=== PATIENT | male | born 1965 | race Caucasian/White ===

== ENCOUNTER 2020-02-15 09:46 | Outpatient (REF) | payer SELFPAY | END 2020-02-15 09:47 | disposition home or self-care (01) | LOC: HO.HMGCLDS 09:46 | PROVIDERS: PCP Internal Medicine; Visit Provider Internal Medicine | DX: Z20.828 Contact with and (suspected) exposure to other viral communicable diseases (principal) | CPT/HCPCS: C9803; U0003 ==

== ENCOUNTER 2020-11-11 15:53 | Outpatient (REF) | payer OTHER, SELFPAY ==
[2020-11-11 17:10] LABS: MANUAL DIFF FLAG NO
[2020-11-11 17:31] LABS: Basophils Percent Auto 0.6 % (0-2); Eosinophils Absolute Auto 0.3 X10*3/uL (0.0-0.4); Eosinophils Percent Auto 5.1 % (0-4); Hematocrit 41.8 % (42-52); Hemoglobin 14.1 g/dl (14.0-18.0); Imm Gran Abs Auto 0.02 X10*3/uL (0.00-0.03); Imm Gran Pct Auto 0.3 % (0.0-0.4); Lymphocytes Absolute Auto 2.1 X10*3/uL (1.2-4.9); Mean Corpuscular HGB Conc 33.7 g/dl (31.0-36.0); Mean Corpuscular Hemoglobin 29.3 pg (27.0-33.0); Mean Corpuscular Volume 86.7 fL (80-98); Mean Platelet Volume 9.5 fL (9.4-12.4); Monocytes Absolute Auto 0.5 X10*3/uL (0.1-1.2); Monocytes Percent Auto 7.4 % (2-11); Neutrophils Absolute Auto 3.5 X10*3/uL (2.0-8.3); Neutrophils Percent Auto 54.6 % (45-73); Platelet Count 166 X10*3/uL (160-400); Red Blood Count 4.82 X10*6/uL (4.60-5.80); Red Cell Distribution Width 13.2 % (11.0-16.0); White Blood Count 6.5 X10*3/uL (4.8-10.8)
[2020-11-11 17:48] LABS: Alanine Aminotransferase 27 U/L (0-40); Albumin Level 4.4 g/dL (3.5-5.0); Alkaline Phosphatase 62 U/L (39-117); Anion Gap 13 (12-20); Aspartate Amino Transferase 26 U/L (5-37); Bilirubin Total 0.4 mg/dL (0.0-1.0); Blood Urea Nitrogen 15 mg/dL (9-16); Calcium 9.3 mg/dL (8.4-10.2); Carbon Dioxide 25 mmol/L (22-29); Chloride 106 mmol/L (96-108); Cholesterol 163 mg/dL; Estimated Glomerular Filt Rate > 60; Glucose Fasting 119 mg/dL (60-99); HDL Cholesterol 37 mg/dL; Iron 43 mcg/dL (45-160); LDL Cholesterol Calculated 103 mg/dl; Percent Iron Saturation 11 % (15-50); Sodium 140 mmol/L (135-145); Total Iron Binding Capacity 388 mcg/dL (228-428); Total Protein 7.1 g/dL (6.5-8.0); Triglycerides 119 mg/dL; Unsaturated Iron Binding 345 ug/dL
[2020-11-11 18:10] LABS: Ferritin 18 ng/mL (20-250); Thyroid Stimulating Hormone 0.95 uIU/mL (0.32-4.0); Vitamin D 25-OH Total 39.9 ng/mL (>30)
[2020-11-14 13:12] LABS: Free Prostate Spec Ag 1.4 ng/mL; Percent Free Prostate Spec Ag NOT CALCULATED % (calc) (>25); Prostate Specific Ag Total 12.1 ng/mL (< OR = 4.0)
== END 2020-11-11 15:54 | disposition home or self-care (01) ==
LOC: HO.LAB 15:53
PROVIDERS: PCP Internal Medicine; Visit Provider Internal Medicine
DX: Z00.00 Encounter for general adult medical examination without abnormal findings (principal); Z12.5 Encounter for screening for malignant neoplasm of prostate; D50.9 Iron deficiency anemia, unspecified; I10 Essential (primary) hypertension
CPT/HCPCS: 36415; 80053; 80061; 82306; 82728; 83540; 84154; 84443; 85025

== ENCOUNTER → 2021-01-10 13:54 | Outpatient (BNVA) | payer OTHER, SELFPAY | PROVIDERS: PCP Internal Medicine; Visit Provider Surgery ==

== ENCOUNTER 2021-01-30 09:42 | Day surgery (SDC) | payer OTHER, SELFPAY ==
[2021-01-23 13:21] VITALS: BMI 28.3
[2021-01-30] VITALS (9 sets, daily range): BP systolic 108–134; BP diastolic 60–85; PULSE 56–64; RESP 16; TEMP 36.3–36.7; O2SAT 95–97
--- NOTE | 2021-01-30 10:36 | HO.ANESPROP2 ---
[facility] Active Problems Active Problems: All Active Problems (Updated 01/23/21 @ 13:21 by Alexia Lambert, RN) Seasonal allergies (Acute) Umbilical hernia (Acute) Past Medical History Medical History (Updated 01/23/21 @ 13:21 by Alexia Lambert, RN) Asthma Back pain COVID-19 vaccine series completed Iron deficiency anemia Sleep difficulties Family History Family History Father Cancer of spine Mother Emphysema, unspecified Family history of problems with anesthesia: No Surgical History Surgical History (Updated 01/23/21 @ 13:21 by Alexia Lambert RN) H/O prostate biopsy Hx of colonoscopy [place] teeth removed History of Problems with Anesthesia: No Social History Social History Are you a primary animal daycare provider to a significant other at home: No Do you presently have visiting nurse or other home services: No Patient Tobacco Use Status: Never used Tobacco Use of substances other than those prescribed or required for medical reasons: No Have you been hit, kicked, punched, or otherwise hurt by someone within the past year? If so, by whom?: No Are you DNR?: No Advance Directives: No Advance Directives Information Provided: No Advance Directives on File: No Recently lost weight without trying: No Eating poorly because of decreased appetite: No Nutrition Risks: No Nutritional Risk Poor oral hygiene: No Meds Allergies Allergy/AdvReac Type Severity Reaction Status Date / Time Benadryl Allergy Unknown hives Uncoded 01/23/21 13:18 Active Medications: Current Medications Sodium Chloride (Ns) 1,000 mls @ 50 mls/hr IVCONT .Q20H MARLYN Lactated Ringer's (Lr) 1,000 mls @ 100 mls/hr IVCONT .Q10H MARLYN Cefazolin Sodium/Dextrose (Ancef) 2 gm in 50 mls @ 100 mls/hr IV PREOP ONE Stop: 01/30/21 10:38 Home Medications Medication Instructions Recorded Confirmed Last Taken Type ferrous sulfate 325 mg (65 mg 325 mg PO DAILY 01/10/21 01/23/21 Unknown History iron) tablet (FeroSul) albuterol sulfate 90 mcg/actuation 1 puff INHALATION Q4-6H PRN 01/23/21 01/23/21 Unknown History aerosol inhaler melatonin 5 mg tablet 5 mg PO BEDTIME PRN 01/23/21 01/23/21 Unknown History Exam Exam Date and Time: January 30, 2021 1036 Height,Weight and Vital Signs: Height 5 ft 11 in Weight 92.079 kg Airway Mallampati Class: I TM Dist: >3cm Neck ROM: Full Loose/Missing/Broken Teeth: Yes and Lower Heart: ok Lungs: ok Assessment and Plan Final Anesthetic Review Family History of Problems with Anesthesia: No History of Problems with Anesthesia: No NPO: Yes ASA Class: II Final Preanesthetic Review: No Changes in Pt Med Stat, Meds/Allgs Chart Reviewed, Consent Obtained/Reviewed and Anes Risks/Benef Reviewed Patient Risk: Low Procedure Risk: Low Anesthetic Plan Anesthetic Plan: GA and Agree w/ Assess. and Plan Disposition: Standard PACU
[2021-01-30] MEDS: Lactated Ringers 1,000 ML 100 ML IVCONT (10:55)
--- NOTE | 2021-01-30 11:47 | W.PM.OPN ---
Operative Note Operative Note Date of Service: 01/30/21 Narrative: Preoperative diagnosis: Umbilical hernia Postoperative diagnosis: Same Procedure: Repair of umbilical hernia with mesh Surgeon: Jackson Tao MD Critical Power Install Technician: Kristen Potts PA-C Anesthesia: General LMA Indications for procedure: 55-year-old male patient presenting with a painful umbilical hernia which is been present for approximately 5 years but is now becoming more symptomatic. Patient is requesting repair of this symptomatic umbilical hernia. Operative findings: Umbilical hernia with incarcerated omental fat Specimen: None Estimated blood loss: 5 mL Complications: None Procedure details: Patient was brought to the OR placed in a supine position. After administering general anesthesia patient's abdomen was prepped with ChloraPrep and draped in a sterile fashion. A surgical time-out was called the consent confirmed. Patient received preoperative antibiotics and Venodyne boots were placed. Local anesthesia consisting of 0.5% Sensorcaine was infiltrated above the umbilicus. Incision was made in a transverse fashion over the umbilicus. This was carried down through subcutaneous tissue up to the hernia sac. The hernia sac was then dissected circumferentially using electrocautery down to the fascial edge. Fascial edge was clearly defined and the hernia sac reduced. A preperitoneal space was then created with blunt sharp dissection. A 6.4 cm Ventralex mesh was then obtained. This was placed in the preperitoneal space and secured in 4 quadrants using a 1 Tycron suture. Fascia was then closed over this mesh incorporating the mesh in the closure. This again was done with 1 Tycron suture. Wounds were then irrigated with saline solution and suctioned dry. Additional local anesthesia was infiltrated into the muscular and subcutaneous tissue. Umbilical skin was then secured to the fascial edge using a 3-0 Polysorb suture. Dermis was reapproximated using interrupted 3-0 Polysorb sutures. Skin was then closed using a running subcuticular 4-0 Polysorb suture. Steri-Strips 2 x 2 gauze and Tegaderm were then applied. The patient tolerated the procedure well. Sponge, instrument, and needle counts reported as correct. The patient was transferred to PACU in stable condition.
[2021-01-30] MEDS: oxyCODONE HCl Immed Release 5 MG TABLET 10 MG PO (12:20)
[2021-01-30] MEDS: Acetaminophen 325 MG TABLET 650 MG PO (12:20)
== END 2021-01-30 13:30 | disposition home or self-care (01) ==
PROVIDERS: PCP Internal Medicine; Visit Provider Surgery
PROC: (CPT 49585; principal; 2021-01-30 11:20)
DX: K42.9 Umbilical hernia without obstruction or gangrene (principal); J45.909 Unspecified asthma, uncomplicated; D50.9 Iron deficiency anemia, unspecified; Z79.899 Other long term (current) drug therapy; Z88.8 Allergy status to other drugs, medicaments and biological substances
CPT/HCPCS: 49585; C1781; J0690; J1100; J1885; J2250; J2405; J3010

== ENCOUNTER → 2021-02-07 13:11 | Outpatient (BNVA) | payer OTHER, SELFPAY | PROVIDERS: PCP Internal Medicine; Visit Provider Surgery ==

== ENCOUNTER → 2021-08-08 13:44 | Outpatient (BNVA) | payer SELFPAY | PROVIDERS: PCP Internal Medicine; Visit Provider Physician Assistant Medical | DX: Z02.79 Encounter for issue of other medical certificate (principal) ==

== ENCOUNTER 2022-01-10 12:16 | Outpatient (REF) | payer OTHER, SELFPAY ==
[2022-01-10 14:06] LABS: D Dimer High Sensitivity 672 NG/ML
== END 2022-01-10 12:17 | disposition home or self-care (01) ==
LOC: HO.WFDLDS 12:16
PROVIDERS: Visit Provider Hospitalist
DX: S70.12XA Contusion of left thigh, initial encounter (principal); W19.XXXA Unspecified fall, initial encounter
CPT/HCPCS: 36415; 85379

== ENCOUNTER 2022-01-10 15:07 | Outpatient (REF) | payer OTHER, SELFPAY ==
--- NOTE | ~2022-01-10 | US_ITS ---
EXAMINATION: US VENOUS ULTRASOUND WITH DOPPLER LOWER EXTREMITY, LEFT CLINICAL INFORMATION: Left thigh contusion. COMPARISON: None TECHNIQUE: Ultrasound of the deep veins is performed from the hip to the calf with compression sonography and color and pulse Doppler assessment. Spectral analysis with color-flow imaging is performed. FINDINGS: There is normal venous compression and respiratory variation and augmented flow. The visualized common femoral vein, superficial femoral vein, profunda femoral vein, popliteal vein, and the trifurcation region shows no evidence of deep venous thrombosis. No left popliteal cyst. In the region of pain in the left lateral thigh is a deep small hypoechoic focus with smooth margins and horizontal orientation at the muscular level measuring approximately 1.7 x 0.5 x 1.2 cm. Color Doppler showed no abnormal vascular flow. The subcutaneous soft tissues are unremarkable. US/US venous duplex LE LT IMPRESSION: 1. No evidence for deep venous thrombosis in the visualized veins of the left lower extremity. 2. Small hypoechoic focus of the deep muscular level in the region of contusion in the lateral left thigh is nonspecific, but demonstrates benign features. This could represent a small hematoma. No other significant abnormality. * If these findings persist or enlarge, short-term repeat targeted soft tissue ultrasound can be performed as clinically indicated to assess for change.
== END 2022-01-10 15:08 | disposition home or self-care (01) ==
LOC: HO.US 15:07
PROVIDERS: PCP Internal Medicine; Visit Provider Hospitalist
DX: I82.409 Acute embolism and thrombosis of unspecified deep veins of unspecified lower extremity (principal); S70.12XA Contusion of left thigh, initial encounter; W19.XXXA Unspecified fall, initial encounter
CPT/HCPCS: 93971

== ENCOUNTER 2022-10-23 14:39 | Outpatient (AMB) | payer OTHER, SELFPAY ==
--- NOTE | 2022-10-23 15:00 | AM.OFFWIN_ITS ---
Intake Vital Signs 10/23/22 15:02 Height 5 ft 11 in Weight 213 lb 4 oz BMI 29.7 BP 114/78 Blood Pressure Location Rt brachial Position Sitting Respiration 14 Pulse 95 Pulse Source Pulse Oximeter Temp 99.1 F Temp Source Temporal Artery Scan Pulse Oximetry (%) 98 Oxygen Delivery Method Room Air Intake Visit Reasons: chills,unable to urinate Intake Note: Patient presents with chills today. Patient completed U/A x4 days ago at [facility] and his urine was an dulce color. Patient reports not being able to urinate. Patient reports when is can finally urinate it desai. Patient reports lower abdomen pain when the urgency presents. Patient Tobacco Use Status: Never used Tobacco [employer] Consultant Required: No Accompanied by: Self / Same As Patient Allergies Benadryl Allergy (Unknown, Uncoded 01/16/22 10:59) hives Medication List - Last Reconciled 10/23/22 by Toy Zayas MD albuterol sulfate 90 mcg/actuation 1 puff inhalation Q4-6H PRN doxycycline hyclate 100 mg PO BID 10 days ferrous sulfate (FeroSul) 325 mg PO DAILY melatonin 5 mg PO BEDTIME PRN Do you need a note to return to daycare/school/sports/work: No HPI chills,unable to urinate HPI Details 57 y/o male presents with complaints of chills and being unable to urinate. He reports that when he does urinate he has felt significant dysuria. He reports he feels he is able to barely urinate today. He reports difficulty emptying but does note that some urine does come out and has been able to urinate multiple times today. [facility] Medical History Asthma Back pain COVID-19 vaccine series completed Iron deficiency anemia Sleep difficulties Surgical History H/O prostate biopsy H/O umbilical hernia repair (01/30/21) Hx of colonoscopy [place] teeth removed Family History Father Cancer of spine Mother Emphysema, unspecified Social History Are you a primary auto care center manager to a significant other at home: No Do you presently have visiting nurse or other home services: No Patient Tobacco Use Status: Never used Tobacco Physical Exam Vital Signs: Last Vital Signs Temp 99.1 F 10/23/22 15:02 Pulse 95 10/23/22 15:02 Resp 14 10/23/22 15:02 BP 114/78 10/23/22 15:02 Pulse Ox 98 10/23/22 15:02 Oxygen Delivery Method Room Air 10/23/22 15:02 BMI result Body Mass Index 29.7 Office Meds ceftriaxone Performing Provider: Toy Zayas MD Administered by: Alexia Escamilla RN on 10/23/22 16:18 Dose Route Admin Location Lot Number Expiration Date NDC Synthetic Filament Spinner 500 mg IM right glut [id number] 08/16/23 5425-9894-36 [facility] Comments: 500mg ceftriaxone reconstituted with 1 ml of lidocaine hcl 1%. Results AMB Urinalysis Dipstick UR Leukocytes Large Last Edit by Gladys Cervantes on 10/23/22 15:31 UR Nitrite Negative Last Edit by Gladys Cervantes on 10/23/22 15:31 UR Urobilinogen Normal Last Edit by Gladys Cervantes on 10/23/22 15:31 UR Protein Trace Last Edit by Gladys Cervantes on 10/23/22 15:31 UR Ph 5.5 Last Edit by Gladys Cervantes on 10/23/22 15:31 UR Blood Trace Last Edit by Gladys Cervantes on 10/23/22 15:31 UR Specific [place] 1.025 Last Edit by Gladys Cervantes on 10/23/22 15 :31 UR Ketone Negative Last Edit by Gladys Cervantes on 10/23/22 15:31 UR Bilirubin Negative Last Edit by Gladys Cervantes on 10/23/22 15:31 UR Glucose Negative Last Edit by Gladys Cervantes on 10/23/22 15:31 Results Reviewed Results Reviewed: Laboratory Last Values Urine pH (Clinic) 5.5 10/23/22 15:29 Specific [place] (Clinic) 1.025 10/23/22 15:29 Ur Protein (Clinic) Trace 10/23/22 15:29 Ur Ketones (Clinic) Negative 10/23/22 15:29 Urine Blood (Clinic) Trace 10/23/22 15:29 Urine Nitrite Negative 10/23/22 15:29 Urine Bilirubin (Clinic) Negative 10/23/22 15:29 Urobilinogen (Clinic) Normal 10/23/22 15:29 Leukocyte Esterase (Clinic) Large 10/23/22 15:29 Urine Glucose (Clinic) Negative 10/23/22 15:29 Assessment & Plan Assessment & Plan (1) Dysuria: Code(s): R30.0 - Dysuria Plan: Dysuria with some difficulty urinating and patient acknowledges upon questioning that he is sexually active and cannot rule out STD/STI. Possible GC/chlamydia infection with prostatitis Possible UTI Patient will receive Rocephin IM in office today and I will send him a script for doxycycline. Doxycycline has fair coverage for UTI but I am sending urine for culture and sensitivity as he may require a change in antibiotics. Advised he hydrate well and monitor carefully. We discussed that if he is having difficulty urinating he could develop a sepsis condition and would need to go to the emergency department. Patient was advised that if not improving or worsening at any time, he should go to the ED. Patient expresses understanding. Will give him the next 2 days off from work. (2) Difficulty urinating: Code(s): R39.198 - Other difficulties with micturition Plan: As above Orders: Orders Urine Culture Today R30.0 - Dysuria UA and rflx microscopic Today R30.0 - Dysuria, Z00.00 - Encounter for general adult medical examination without abnormal findings AMB Ceftriaxone Injection Today R30.0 - Dysuria, R39.198 - Other difficulties with micturition Urine Dipstick Today R30.0 - Dysuria Medications: New doxycycline hyclate 100 mg PO BID 20 caps 0RF 10 days Coding Level of Care Code Est Pt Level 3 (83911) Diagnoses Dysuria R30.0 Difficulty urinating R39.198
[2022-10-23 15:02] VITALS: BP 114/78; PULSE 95; RESP 14; TEMP 37.3; O2SAT 98; BMI 29.7
== END 2022-10-23 15:58 | disposition home or self-care (01) ==
PROVIDERS: PCP Internal Medicine; Visit Provider Family Medicine
DX: R30.0 Dysuria (principal); R39.198 Other difficulties with micturition
CPT/HCPCS: 96372; 99213; J0696

== ENCOUNTER 2022-10-23 15:20 | Outpatient (REF) | payer OTHER, SELFPAY ==
[2022-10-24 12:24] LABS: Appearance Urine Clear; Color Urine Yellow; Glucose Urine UA Negative (Negative); Leukocyte Esterase Urine Small (1+) (Negative); Nitrite Urine Negative (Negative); PH 5.5 (5.0-9.0); UMIC TRIGGER UA YES; Urine Blood Negative (Negative); Urine Ketones Negative (Negative); Urine Protein Negative (Neg-Trace)
[2022-10-24 12:26] LABS: Bacteria Urine None Seen (None Seen); Hyaline Casts Urine 0-2 /LPF (0-2); RBC Urine 0-2 /HPF (0-2); Squamous Epithelial Cell Urine 0-2 /HPF (0-2); WBC Urine >50 /HPF (0-5)
== END 2022-10-23 15:21 | disposition home or self-care (01) ==
LOC: HO.LAB 15:20
PROVIDERS: Visit Provider Family Medicine
DX: R30.0 Dysuria (principal)
CPT/HCPCS: 81001; 87086

== ENCOUNTER 2023-04-16 09:52 | Emergency (ER) | payer OTHER, SELFPAY ==
[2023-04-16 09:56] VITALS: BP 156/88; PULSE 64; RESP 18; TEMP 36.6; O2SAT 98; BMI 29.8
[2023-04-16 11:26] LABS: Appearance Urine Clear; Color Urine Yellow; Glucose Urine UA Negative (Negative); Leukocyte Esterase Urine Negative (Negative); Nitrite Urine Negative (Negative); Specific Gravity - Urine 1.025 (1.005-1.025); UMIC TRIGGER UACC YES; Urine Blood Trace (Negative); Urine Ketones Negative (Negative); Urine Protein Negative (Neg-Trace)
[2023-04-16 11:33] LABS: Bacteria Urine None Seen (None Seen); Hyaline Casts Urine 0-2 /LPF (0-2); RBC Urine 0-2 /HPF (0-2); Squamous Epithelial Cell Urine 0-2 /HPF (0-2); WBC Urine 0-5 /HPF (0-5)
--- NOTE | 2023-04-16 12:27 | ED_ITS ---
HPI - Male Genitourinary General Chief complaint: Urogenital-Male Stated complaint: trouble urinating Time Seen by Provider: 04/16/23 11:12 Source: patient and RN notes reviewed Mode of arrival: ambulatory Limitations: no limitations History of Present Illness HPI Narrative: This is a 57 year old male, with no known medical problems, presenting to the emergency department with complaints of intermittent urinary symptoms for several months. ?Patient states that over the last several months he has had intermittent urinary urgency, frequency and dysuria. He was previously seen in December where he was given prophylactic treatment for STI's. He states that he has had nocturia which he states that he has been urinating three to four times a night. He also reports that he oftentimes has to strain with urination. He states that when he wakes up in the morning he has burning with urination. He denies any penile drainage or discharge. He is not currently sexually active, last had sexual intercourse five to six months ago. He denies any fevers, chills, chest pain, shortness of breath, abdominal pain, nausea, vomiting or diarrhea. He feels as though he is able to fully empty his bladder at this time. No testicular pain or swelling. He has a PCP. No rashes no other complaints are concerns at this time. MD Complaint: dysuria Quality: burning Relieving factors: none Exacerbating factors: urination Associated symptoms: Reports denies other symptoms Related Data Sexually active: No Home Medications Medication Instructions Recorded Confirmed ferrous sulfate 325 mg (65 mg 325 mg PO DAILY 01/10/21 10/23/22 iron) tablet (FeroSul) albuterol sulfate 90 mcg/actuation 1 puff inhalation Q4-6H PRN 01/23/21 10/23/22 aerosol inhaler Wheezing melatonin 5 mg tablet 5 mg PO BEDTIME PRN Sleep 01/23/21 10/23/22 Previous Rx's Medication Instructions Recorded doxycycline hyclate 100 mg capsule 100 mg PO BID 10 days #20 caps 10/23/22 Allergies Allergy/AdvReac Type Severity Reaction Status Date / Time Benadryl Allergy Unknown hives Uncoded 04/16/23 09:56 Review of Systems Review of Systems: Yes all other systems are reviewed and are negative PMFSH Past Medical History Medical History Asthma Back pain COVID-19 vaccine series completed Iron deficiency anemia Sleep difficulties Surgical History H/O prostate biopsy H/O umbilical hernia repair (01/30/21) Hx of colonoscopy [place] teeth removed Family History Family History Father Cancer of spine Mother Emphysema, unspecified Social History Social History Are you a primary primary care physician to a significant other at home: No Do you presently have visiting nurse or other home services: No Patient Tobacco Use Status: Never used Tobacco Smoked in Last 30 Days: No Use of substances other than those prescribed or required for medical reasons: No Advance Directives: No Physical Exam Vital Signs: Vital Signs: Last Vital Signs Temp 98 F 04/16/23 12:44 Pulse 70 04/16/23 12:44 Resp 16 04/16/23 12:44 BP 140/70 H 04/16/23 12:44 Pulse Ox 98 04/16/23 12:44 O2 Del Method Room Air 04/16/23 12:44 BMI result Body Mass Index 29.8 Const: Other: General: Awake, alert, and oriented X3. No acute distress. HEENT: Normal inspection CVS: Normal heart rate and rhythm. Pulses normal. Respiratory: No respiratory distress, Lungs CTAB Abdomen: Soft, Nontender, nondistended Skin: Warm, dry, no rashes noted to exposed skin. Normal skin color. Normal skin turgor. Extremities: Normal to inspection Neuro: Oriented X 3. No motor deficit. No sensory deficit. Medical Decision Making Medical Decision Making MDM Narrative: This 57 year old male presenting to the emergency department with complaints of dysuria x 3 weeks. Patient states that the [place] is not constant and typically occurs in the morning. 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 He denies any hematuria, but does report urinary frequency at night as well as dribbling. Urinalysis was collected, does not appear to be infected. He's requesting gonorrhea and chlamydia testing however has not been sexually active in the last five to six months. Declining treatment for STI's at this time. I discussed with patient the findings from urine analysis and I do not believe that this is a urinary tract infection and stand rather possible prostate problem. I discussed with patient to follow up with PCP or urology which I gave him a referral to today. Patient given return precautions. His vital signs are stable, abdomen soft non tender, no back pain, no further ER evaluation, labs, or diagnostic imaging at this time. Patient stable for discharge. Differential Diagnosis Differential Diagnoses: The differential diagnosis associated with the presentation includes UTI, BPH, urinary frequency, retention, STI Lab Data MDM Lab Attestation statement: I reviewed the patient's lab results. Neg for UTI. no chlamydia/gonorrhea Labs: Lab Results 04/16/23 04/16/23 Range/Units 11:11 11:16 Urine Color Yellow Urine Appearance Clear Urine pH 6.0 (5.0-9.0) Ur Specific [place] 1.025 (1.005-1.025) Urine Protein Negative (Neg-Trace) mg/dL Urine Glucose (UA) Negative (Negative) mg/dL Urine Ketones Negative (Negative) mg/dL Urine Blood Trace (Negative) Urine Nitrite Negative (Negative) Ur Leukocyte Esterase Negative (Negative) Urine RBC 0-2 (0-2) /HPF Urine WBC 0-5 (0-5) /HPF Ur Squamous Epith Cells 0-2 (0-2) /HPF Urine Bacteria None Seen (None Seen) Hyaline Casts 0-2 (0-2) /LPF Chlam trachomat DNA PCR NOT DETECTED (Not Detect.) C.trachomatis RNA (TMA) Cancelled Chlamydia/GC Comment Cancelled N.gonorrhoeae DNA (PCR) NOT DETECTED (Not Detect.) N.gonorrhoeae RNA (TMA) Cancelled Discharge Plan Discharge Clinical Impression: Dysuria, Urinary frequency Patient Disposition: Home, Self-Care Instructions: Dysuria (ED), Urinary Urgency and Frequency (DC) Additional Instructions: You were seen in the emergency department due to painful urination, and urinary frequency Your urine does not appear to be infected. We sent your urine for chlamydia and gonorrhea testing. We will call you if these are positive. If you wish to have further STI testing, you may report to [facility], they can perform a full STI panel on you. I am also suggesting to drink plenty of fluids get plenty of rest. Your symptoms may be attributed to prostate problems, I am recommending he follow-up with your primary care physician or you can follow-up with Urology. Call to make an appointment today. If any new or worsening symptoms occur including but not limited to unable to urinate, fever, chills, worsening pain, or worsening symptoms, please return for re-evaluation. Prescriptions: No Action albuterol sulfate 90 mcg/actuation HFA aerosol inhaler 1 puff inhalation Q4-6H PRN (Reason: Wheezing) melatonin 5 mg Tablet 5 mg PO BEDTIME PRN (Reason: Sleep) doxycycline hyclate 100 mg capsule 100 mg PO BID 10 Days Qty: 20 0RF ferrous sulfate [FeroSul] 325 mg (65 mg iron) tablet 325 mg PO DAILY Referrals: [facility] [place] Urology Services [Provider Group] Interventions: ED Discharge Assessment Last Done: 04/16/23 12:50 Discharge Date/Time: 04/16/23 12:49
[2023-04-16 12:44] VITALS: BP 140/70; PULSE 70; RESP 16; TEMP 36.6; O2SAT 98
[2023-04-16 16:58] LABS: CT PCR NOT DETECTED (Not Detect.); NG PCR NOT DETECTED (Not Detect.)
== END 2023-04-16 12:49 | disposition home or self-care (01) ==
PROVIDERS: Physician Assistant Medical; Emergency Provider Emergency Medicine Emergency Medical Services
DX: R39.15 Urgency of urination (principal); R30.0 Dysuria; R35.0 Frequency of micturition; Z79.899 Other long term (current) drug therapy
CPT/HCPCS: 0353U; 81001; 99283; 99284

== ENCOUNTER 2023-05-24 15:34 | Outpatient (AMB) | payer OTHER, SELFPAY ==
--- NOTE | 2023-05-24 16:09 | A.OFFVIS_ITS ---
Intake Intake Visit Reasons: frequency, urgency ED follow up Intake Note: New Patient presents for initial visit for [facility] [place] ER follow up for Dysuria, frequency, and urgency ER Visit: 04/16/23 Urology Medications: none Blood Thinner: none PVR:67ml's Jockey Agent Required: No Accompanied by: Self / Same As Patient Allergies Benadryl Allergy (Unknown, Uncoded 05/26/23 23:53) hives Medication List - Last Reconciled 05/26/23 by SEAN Castro albuterol sulfate 90 mcg/actuation 1 puff inhalation Q4-6H PRN melatonin 5 mg PO BEDTIME PRN tamsulosin 0.4 mg PO BEDTIME 30 days HPI HPI Comments History of Present Illness Details Hector is a very pleasant 57-year-old male patient. He has a past medical history of iron deficiency anemia, asthma, and back pain. He presents to the office today as a new patient for ongoing lower urinary tract symptoms. He reports noting worsening urinary frequency and nocturia. 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 In discussion with the patient today reports having seeked emergency room care approximately 6 weeks ago as he had been experiencing intermittent urinary symptoms for several months. He reports symptoms continue to be present therefore recommendations were made for urology referral. He reports noting intermittent issues with urinary urgency, urinary frequency, and dysuria. He otherwise denies incontinence, hematuria, foul smelling urine, changes to urinary stream, flank pain, fever, and or chills. Discussed at length potential causes for lower urinary tract symptoms patient is experiencing. Discussed obtaining retroperitoneal ultrasound as well as PSA for further assessment evaluation. TAMRA offered however deferred. He otherwise offers no other issues or concerns at this time. [facility] Medical History COVID-19 vaccine series completed Back pain Iron deficiency anemia Sleep difficulties Asthma Surgical History H/O umbilical hernia repair (01/30/21) Hx of colonoscopy [place] teeth removed H/O prostate biopsy Family History Father Cancer of spine Mother Emphysema, unspecified Social History Are you a primary caregivers homecare to a significant other at home: No Do you presently have visiting nurse or other home services: No Patient Tobacco Use Status: Never used Tobacco Review of Systems Const Reports no additional complaints Eyes Reports no additional complaints ENT Reports no additional complaints Card Reports no additional complaints Resp Reports as per HPI GI Reports no additional complaints Reports as per HPI Musc Reports as per HPI Neuro Reports no additional complaints Psych Reports no additional complaints Endo Reports no additional complaints Terry/Lymph Reports as per HPI Aller/Immun Reports no additional complaints Physical Exam Const General: cooperative, healthy appearing, comfortable, no acute distress, well developed, alert and awake Orientation/consciousness: patient oriented x3 Limitations: no limitations HEENT Head: Yes normal to inspection, Yes normocephalic and Yes atraumatic Ears: hearing grossly normal bilaterally Eyes General: appearance normal, both eyes and all related structures Neck Neck: Yes normal visual inspection and Yes trachea midline Chest Chest palpation & inspection: normal inspection of the chest Resp Effort & Inspection: normal respiratory effort and able to speak in complete sentences Cardio Rate: regular rate GI Inspection: Yes normal to inspection General: Yes no CVA tenderness Back/Spine/Pelvis Back: no CVA tenderness Skin General skin exam: no rashes or lesions noted Neuro General: patient oriented x3 Extrem General: Yes normal to inspection Psych Appearance: grossly normal and well kempt Mental Status: mental status grossly normal Speech and movement: Normal speech and movement present and Clear speech present Affect: normal affect Attitude: cooperative Thought process: Normal thought process present Thought content: Normal thought content present Insight: Fair insight present (Psych) Judgement: Fair judgement present (Psych) Office Procedures Post Void Residual Post Residual Void Post Void Residual (PVR): 67 [id number] Void Residual by ultrasound Results AMB Urinalysis, Automated UA Leukoctes 0 Arben/uL Last Edit by [employer] on 05/24/23 16:26 UA Nitrite Negative Last Edit by [employer] on 05/24/23 16:26 UA Urobilinogen 0.2 mg/dL Last Edit by [employer] on 05/24/23 16:26 UA Protein 15 mg/dL Last Edit by [employer] on 05/24/23 16:26 UA pH 6.0 Last Edit by [employer] on 05/24/23 16:26 UA Blood 0 Gonzalez/uL Last Edit by Latesha Burtonadán on 05/24/23 16:26 UA Specific [place] 1.025 Last Edit by Latesha Burtonadán on 05/24/23 16:26 UA Ketone Negative Last Edit by Latesha Burtonadán on 05/24/23 16:26 UA Bilirubin 1 mg/dL Last Edit by Latesha Burtonadán on 05/24/23 16:26 UA Glucose 0 mg/dL Last Edit by Codynancy Josephineadán on 05/24/23 16:26 Results Reviewed Results Reviewed: Laboratory Last Values Urine pH (Auto) 6.0 05/24/23 16:13 Specific [place] (Auto) 1.025 05/24/23 16:13 Urine Protein (Auto) 15 mg/dL 05/24/23 16:13 Glucose (UA)(Auto) 0 mg/dL 05/24/23 16:13 Urine Ketones (Auto) Negative 05/24/23 16:13 Urine Blood (Auto) 0 Gonzalez/uL 05/24/23 16:13 Urine Nitrite (Auto) Negative 05/24/23 16:13 Urine Bilirubin (Auto) 1 mg/dL 05/24/23 16:13 Urine Urobilinogen (Auto) 0.2 mg/dL 05/24/23 16:13 Leukocyte Esterase (Auto) 0 Arben/uL 05/24/23 16:13 Assessment & Plan Assessment & Plan (1) Urinary frequency: Code(s): R35.0 - Frequency of micturition (2) Nocturia: Code(s): R35.1 - Nocturia Plan In office urinalysis results reviewed with the patient today; as noted above. PVR 67 mL. Discussed at length lifestyle modifications to assist with lower urinary tract symptoms. Discussed at length potential causes for lower urinary tract symptoms patient is experiencing. Will obtain retroperitoneal ultrasound for further assessment evaluation. Will obtain PSA for further assessment evaluation. TAMRA offered however deferred. Start Flomax as discussed and prescribed. Discussed possible near future in office cystoscopy and or urodynamics for further assessment evaluation if symptoms persist and/or worsen. Discussed bladder triggers/irritants. Follow-up in 1-3 months with imaging and lab to be completed prior; or sooner with any issues, concerns, and or questions. Orders: Orders Prostate Specific Antigen 05/24/23 R35.0 - Frequency of micturition, R35.1 - Nocturia AMB Urinalysis Automated 05/24/23 Z13.9 - Encounter for screening, unspecified AMB Post Void Residual by ultrasound 05/24/23 R30.0 - Dysuria US retroperitoneal comp 05/24/23 R35.0 - Frequency of micturition, R35.1 - Nocturia Medications: New tamsulosin 0.4 mg PO BEDTIME 30 days 30 caps 2RF N40.1 - Benign prostatic hyperplasia with lower urinary tract symptoms, R35.1 - Nocturia Patient Instructions: The patient had an opportunity to ask questions regarding the treatment plan. All questions were answered. Physical exam, labs, and imaging were discussed and reviewed in detail. As well as risks, benefits, and discussion of treatment choices. No major barriers to understanding were identified. The patient expressed understanding and agreement with the above treatment plan. The patient was made aware they should contact our office by phone for worsening of their current condition, the appearance of new symptoms, or with any questions or concerns. Compliance is encouraged with any medications and follow up testing that is ordered. It is a privilege to be allowed the opportunity to participate in? your urological care.? Again, if you have any questions or concerns If you have any questions or concerns please do not hesitate to contact me. The office is [phone]. This note is constructed using voice recognition software. While every effort has been made to ensure accuracy beehive kiln supervisor errors may have been included. Yours sincerely, SEAN Castro Coding Level of Care Code New Pt Level 4 (86843) Diagnoses Urinary frequency R35.0 Nocturia R35.1 CPT Codes Post Residual Void - PVR CPT Code: 44781-Zqgo Void Residual by ultrasound ([id number]) Time Spent (min) 40
== END 2023-05-24 16:52 | disposition home or self-care (01) ==
PROVIDERS: Visit Provider Nurse Practitioner Family
DX: R35.0 Frequency of micturition (principal); R35.1 Nocturia
CPT/HCPCS: 99204

== ENCOUNTER → 2023-05-24 15:34 | Outpatient (BNVA) | payer OTHER, SELFPAY | PROVIDERS: Visit Provider Nurse Practitioner Family | DX: R35.0 Frequency of micturition (principal); R35.1 Nocturia | CPT/HCPCS: 51798; 81003 ==

== ENCOUNTER → 2023-06-27 14:45 | Outpatient (BNVA) | payer SELFPAY | PROVIDERS: Visit Provider Physician Assistant Medical | DX: Z02.79 Encounter for issue of other medical certificate (principal) ==

== ENCOUNTER 2023-07-18 15:51 | Outpatient (REF) | payer OTHER, SELFPAY ==
--- NOTE | ~2023-07-18 | US_ITS ---
EXAMINATION: US RETROPERITONEAL LIMITED (RENAL ONLY) CLINICAL INFORMATION: Nocturia. COMPARISON: CT abdomen and pelvis 03/01/2017. TECHNIQUE: Real-time imaging of the kidneys. FINDINGS: RIGHT KIDNEY: 11.7 x 5.5 x 5.5 cm (SAG x AP x TRV). The kidney is normal in size, contour, and echogenicity. Renal cortical thickness is normal. No calculi or focal parenchymal lesions. No hydronephrosis. LEFT KIDNEY: 11.9 x 5.9 x 4.4 cm (SAG x AP x TRV). The kidney is normal in size, contour, and echogenicity. Renal cortical thickness is normal. No renal calculi or hydronephrosis. 5.2 cm simple exophytic cyst from the mid kidney. No imaging follow-up is recommended. US/US renal BI IMPRESSION: No hydronephrosis.
[2023-07-18 17:51] LABS: Prostate Specific Antigen 11.95 ng/mL (<0.05-4.0)
== END 2023-07-18 15:52 | disposition home or self-care (01) ==
LOC: HO.US 15:51
PROVIDERS: Visit Provider Nurse Practitioner Family
DX: R35.0 Frequency of micturition (principal); R35.1 Nocturia; Z12.5 Encounter for screening for malignant neoplasm of prostate
CPT/HCPCS: 36415; 76775; 84153

== ENCOUNTER 2023-07-24 16:02 | Outpatient (REF) | payer OTHER, SELFPAY ==
--- NOTE | ~2023-07-24 | US_ITS ---
EXAMINATION: US PELVIS LIMITED (BLADDER) CLINICAL INFORMATION: Nocturia. Frequency. COMPARISON: Renal ultrasound 07/18/2023. CT abdomen and pelvis 03/01/2017. TECHNIQUE: Real-time imaging of the bladder. FINDINGS: BLADDER: Well distended and normal. Bilateral ureteral jets are demonstrated. Prevoid bladder volume is 270.9 mL. Postvoid bladder volume is 210.6 mL, second postvoid 138 mL. Enlarged prostate, volume 117 mL. US/US bladder IMPRESSION: 1. Large post void residual. 2. Markedly enlarged prostate.
== END 2023-07-24 16:03 | disposition home or self-care (01) ==
LOC: HO.US 16:02
PROVIDERS: Visit Provider Nurse Practitioner Family
DX: R35.1 Nocturia (principal); R35.0 Frequency of micturition
CPT/HCPCS: 76857

== ENCOUNTER 2023-08-02 14:34 | Outpatient (AMB) | payer OTHER, SELFPAY ==
--- NOTE | 2023-08-02 14:44 | A.OFFVIS_ITS ---
Intake Visit Reasons: US f/u(set) Intake Note: Patient presents for follow up visit for Dysuria, Ultrasound and PSA labs Urology Medications: none (pt stated never got tamsulosin) Blood Thinner: none PVR: 37ml's Development Technical Lead Required: No Accompanied by: Self / Same As Patient Allergies Benadryl Allergy (Unknown, Uncoded 08/02/23 22:26) hives Medication List - Last Reconciled 08/02/23 by CHRIS Castro- albuterol sulfate 90 mcg/actuation 1 puff inhalation Q4-6H PRN melatonin 5 mg PO BEDTIME PRN sulfamethoxazole-trimethoprim 800-160 mg (Bactrim DS) 1 tab PO BID 14 days HPI Comments Details: Hector is a very pleasant 57-year-old male patient. He has a past medical history of iron deficiency anemia, asthma, and back pain. He presents to the office today for follow-up of his lower urinary tract symptoms. Of note, patient was seen approximately 2 months ago at which time a retroperitoneal ultrasound and PSA were ordered for further assessment evaluation. These results were reviewed with the patient today. Bilateral kidneys with no hydronephrosis or calculi noted. Left kidney with 5.2 cm simple cyst from the mid kidney. No imaging follow-up is recommended per radiology report. The bladder is well distended and normal. Bilateral ureteral jets are demonstrated. Pre void bladder volume is approximately 270 mL. Postvoid bladder volume is approximately 140 mL. Prostate volume is 117 mL. During last office visit patient was prescribed Flomax however he reports never starting this medication as he attempted lifestyle modifications first with limiting fluids prior to bed and avoiding bladder triggers/irritants. He continues with urinary frequency and nocturia. PSAs are as follows: PSAs: 03/05 17.5, 04/06 15.3, 08/04 10.7, 11/05 12.1, 11/05 1.4, 08/08 12.0 He reports noting intermittent issues with urinary urgency, urinary frequency, and dysuria. He otherwise denies incontinence, hematuria, foul smelling urine, changes to urinary stream, flank pain, fever, and or chills. Discussed at length potential causes for lower urinary tract symptoms patient is experiencing. Discussed potential causes for elevated PSA. TAMRA performed boggy prostate noted. Discussed prostatitis. In office urinalysis results reviewed with the patient today. PVR 37 mLs. He otherwise offers no other issues or concerns at this time. [facility] Medical History COVID-19 vaccine series completed Back pain Iron deficiency anemia Sleep difficulties Asthma Surgical History H/O umbilical hernia repair (01/30/21) Hx of colonoscopy [place] teeth removed H/O prostate biopsy Family History Father Cancer of spine Mother Emphysema, unspecified Social History Are you a primary adult daycare coordinator to a significant other at home: No Do you presently have visiting nurse or other home services: No Patient Tobacco Use Status: Never used Tobacco Review of Systems Const Reports no additional complaints Eyes Reports no additional complaints ENT Reports no additional complaints Card Reports no additional complaints Resp Reports as per HPI GI Reports no additional complaints Reports as per HPI Musc Reports as per HPI Neuro Reports no additional complaints Psych Reports no additional complaints Endo Reports no additional complaints Terry/Lymph Reports as per HPI Aller/Immun Reports no additional complaints Physical Exam Const General: cooperative, healthy appearing, comfortable, no acute distress, well developed, alert and awake Orientation/consciousness: patient oriented x3 Limitations: no limitations HEENT Head: Yes normal to inspection, Yes normocephalic and Yes atraumatic Ears: hearing grossly normal bilaterally Eyes General: appearance normal, both eyes and all related structures Neck Neck: Yes normal visual inspection and Yes trachea midline Chest Chest palpation & inspection: normal inspection of the chest Resp Effort & Inspection: normal respiratory effort and able to speak in complete sentences Cardio Rate: regular rate GI Inspection: Yes normal to inspection General: Yes no CVA tenderness Back/Spine/Pelvis Back: no CVA tenderness Skin General skin exam: no rashes or lesions noted Neuro General: patient oriented x3 Extrem General: Yes normal to inspection Psych Appearance: grossly normal and well kempt Mental Status: mental status grossly normal Speech and movement: Normal speech and movement present and Clear speech present Affect: normal affect Attitude: cooperative Thought process: Normal thought process present Thought content: Normal thought content present Insight: Fair insight present (Psych) Judgement: Fair judgement present (Psych) Office Procedures Post Void Residual Post Residual Void Post Void Residual (PVR): 37 [id number] Void Residual by ultrasound Results AMB Urinalysis, Automated UA Leukoctes 0 Arben/uL Last Edit by Latesha Calzada on 08/02/23 15:02 UA Nitrite Negative Last Edit by Latesha Calzada on 08/02/23 15:02 UA Urobilinogen 0.2 mg/dL Last Edit by Latesha Calzada on 08/02/23 15:02 UA Protein 15 mg/dL Last Edit by Latesha Calzada on 08/02/23 15:02 UA pH 6.0 Last Edit by Latesha Calzada on 08/02/23 15:02 UA Blood 0 Gonzalez/uL Last Edit by Latesha Calzada on 08/02/23 15:02 UA Specific [place] 1.020 Last Edit by Latesha Calzada on 08/02/23 15:02 UA Ketone Negative Last Edit by Latseha Calzada on 08/02/23 15:02 UA Bilirubin 1 mg/dL Last Edit by Latesha Calzada on 08/02/23 15:02 UA Glucose 0 mg/dL Last Edit by Latesha Calzada on 08/02/23 15:02 Results Reviewed Results Reviewed: Laboratory Last Values Urine pH (Auto) 6.0 08/02/23 15:00 Specific [place] (Auto) 1.020 08/02/23 15:00 Urine Protein (Auto) 15 mg/dL 08/02/23 15:00 Glucose (UA)(Auto) 0 mg/dL 08/02/23 15:00 Urine Ketones (Auto) Negative 08/02/23 15:00 Urine Blood (Auto) 0 Gonzalez/uL 08/02/23 15:00 Urine Nitrite (Auto) Negative 08/02/23 15:00 Urine Bilirubin (Auto) 1 mg/dL 08/02/23 15:00 Urine Urobilinogen (Auto) 0.2 mg/dL 08/02/23 15:00 Leukocyte Esterase (Auto) 0 Arben/uL 08/02/23 15:00 Date of Service: 07/24/23 EXAMINATION: US PELVIS LIMITED (BLADDER) FINDINGS: BLADDER: Well distended and normal. Bilateral ureteral jets are demonstrated. Prevoid bladder volume is 270.9 mL. Postvoid bladder volume is 210.6 mL, second postvoid 138 mL. Enlarged prostate, volume 117 mL. IMPRESSION: 1. Large post void residual. 2. Markedly enlarged prostate. Date of Service: 07/18/23 EXAMINATION: US RETROPERITONEAL LIMITED (RENAL ONLY) FINDINGS: RIGHT KIDNEY: 11.7 x 5.5 x 5.5 cm (SAG x AP x TRV). The kidney is normal in size, contour, and echogenicity. Renal cortical thickness is normal. No calculi or focal parenchymal lesions. No hydronephrosis. LEFT KIDNEY: 11.9 x 5.9 x 4.4 cm (SAG x AP x TRV). The kidney is normal in size, contour, and echogenicity. Renal cortical thickness is normal. No renal calculi or hydronephrosis. 5.2 cm simple exophytic cyst from the mid kidney. No imaging follow-up is recommended. IMPRESSION: No hydronephrosis. Assessment & Plan Assessment & Plan (1) Elevated PSA: Code(s): R97.20 - Elevated prostate specific antigen [PSA] Category: Medical (2) Enlarged prostate: Code(s): N40.0 - Benign prostatic hyperplasia without lower urinary tract symptoms Category: Medical (3) Prostatitis: Code(s): N41.9 - Inflammatory disease of prostate, unspecified Category: Medical (4) Lower urinary tract symptoms: Code(s): R39.9 - Unspecified symptoms and signs involving the genitourinary system Category: Medical Plan In office urinalysis results reviewed with the patient today; as noted above. PVR 37 mL. Recent bladder ultrasound results reviewed with the patient today; as noted above. Recent renal imaging results reviewed with the patient today; as noted above. Discussed possible near future in office cystoscopy for further assessment evaluation given enlarged prostate noted on bladder ultrasound. TAMRA performed boggy prostate noted. Start Bactrim as discussed and prescribed. Discussed at length potential causes of elevated PSA and lower urinary tract symptoms patient is experiencing. Will obtain redraw of PSA 6 weeks status post completion of antibiotic therapy as discussed and prescribed. Discussed, educated, and stressed the importance of drinking water daily. Follow-up in 8 weeks with lab to be completed prior; or sooner with any issues, concerns, and or questions. Orders: Orders AMB Urinalysis Automated Today Z13.9 - Encounter for screening, unspecified AMB Post Void Residual by ultrasound Today R35.1 - Nocturia PSA,Total (Free>4and<10) 6 Weeks N40.0 - Benign prostatic hyperplasia without lower urinary tract symptoms, R97.20 - Elevated prostate specific antigen [PSA] Urine Cytology Today R30.0 - Dysuria, R35.1 - Nocturia, R39.198 - Other difficulties with micturition Medications: New sulfamethoxazole-trimethoprim 800-160 mg (Bactrim DS) 1 tab PO BID 28 tabs 0RF 14 days N39.0 - Urinary tract infection, site not specified Discontinued tamsulosin Discontinued Reason: Doctor's Order 0.4 mg PO BEDTIME 30 caps 2RF 30 days N40.1 - Benign prostatic hyperplasia with lower urinary tract symptoms, R35.1 - Nocturia Patient Instructions: The patient had an opportunity to ask questions regarding the treatment plan. All questions were answered. Physical exam, labs, and imaging were discussed and reviewed in detail. As well as risks, benefits, and discussion of treatment choices. No major barriers to understanding were identified. The patient expressed understanding and agreement with the above treatment plan. The patient was made aware they should contact our office by phone for worsening of their current condition, the appearance of new symptoms, or with any questions or concerns. Compliance is encouraged with any medications and follow up testing that is ordered. It is a privilege to be allowed the opportunity to participate in? your urological care.? Again, if you have any questions or concerns If you have any questions or concerns please do not hesitate to contact me. The office is [phone]. This note is constructed using voice recognition software. While every effort has been made to ensure accuracy loan and credit manager errors may have been included. Yours sincerely, SEAN Castro Coding Level of Care Code Est Pt Level 4 (55114) Diagnoses Elevated PSA R97.20 Enlarged prostate N40.0 Prostatitis N41.9 Lower urinary tract symptoms R39.9 CPT Codes Post Residual Void - PVR CPT Code: 33090-Busf Void Residual by ultrasound ([id number])
== END 2023-08-02 16:01 | disposition home or self-care (01) ==
PROVIDERS: Visit Provider Nurse Practitioner Family
DX: R97.20 Elevated prostate specific antigen [PSA] (principal); N40.0 Benign prostatic hyperplasia without lower urinary tract symptoms; N41.9 Inflammatory disease of prostate, unspecified; R39.9 Unspecified symptoms and signs involving the genitourinary system; Z13.9 Encounter for screening, unspecified
CPT/HCPCS: 99214

== ENCOUNTER 2023-08-02 14:34 | Outpatient (REF) | payer OTHER, SELFPAY ==
[2023-08-02 16:52] LABS: Urine Cytology See Pathology rpt
== END 2023-08-02 14:35 | disposition home or self-care (01) ==
LOC: HO.LNP 14:34
PROVIDERS: Visit Provider Nurse Practitioner Family
DX: R30.0 Dysuria (principal); R39.198 Other difficulties with micturition; R35.1 Nocturia; R97.20 Elevated prostate specific antigen [PSA]; N40.0 Benign prostatic hyperplasia without lower urinary tract symptoms; N41.9 Inflammatory disease of prostate, unspecified; R39.9 Unspecified symptoms and signs involving the genitourinary system
CPT/HCPCS: 51798; 81003; 88112

== ENCOUNTER 2023-09-10 14:46 | Outpatient (REF) | payer OTHER, SELFPAY ==
[2023-09-10 16:44] LABS: PSA,Total (Free>4and<10) 12.28 ng/mL (0.00-4.00)
== END 2023-09-10 14:47 | disposition home or self-care (01) ==
LOC: HO.LAB 14:46
PROVIDERS: Visit Provider Nurse Practitioner Family
DX: R97.20 Elevated prostate specific antigen [PSA] (principal); N40.0 Benign prostatic hyperplasia without lower urinary tract symptoms; Z12.5 Encounter for screening for malignant neoplasm of prostate
CPT/HCPCS: 36415; 84153

== ENCOUNTER 2023-09-26 15:38 | Outpatient (AMB) | payer OTHER, SELFPAY ==
--- NOTE | 2023-09-26 15:55 | MHC.OFFVIS ---
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 He has a past medical history of iron deficiency anemia, asthma, and back pain. He presents to the office today for follow-up of his lower urinary tract symptoms and elevated PSA. Of note, patient was seen approximately 2 months ago at which time he was treated with Bactrim for presumed prostatitis given elevated PSA, lower urinary tract symptoms and boggy prostate noted on TAMRA. In discussion with the patient today he reports having completed antibiotic therapy as prescribed. Recent PSA results reviewed with the patient today. As noted and trended below. Previous workup has included a retroperitoneal ultrasound noting bilateral kidneys with no hydronephrosis or calculi noted. Left kidney with 5.2 cm simple cyst from the mid kidney. No imaging follow-up is recommended per radiology report. The bladder is well distended and normal. Bilateral ureteral jets are demonstrated. PSAs are as follows: PSAs: 03/05 17.5, 04/06 15.3, 08/04 10.7, 11/05 12.1, 11/05 1.4, 08/08 12.0, 09/08 12.3 He reports noting intermittent issues with urinary urgency, urinary frequency, and dysuria. He otherwise denies incontinence, hematuria, foul smelling urine, changes to urinary stream, flank pain, fever, and or chills. Discussed at length potential causes for lower urinary tract symptoms patient is experiencing. Discussed potential causes for elevated PSA. Discussed further treatment options to include surveillance monitoring verses prostate MRI verses prostate biopsy. Risks and benefits of these interventions were discussed at length. In office urinalysis results reviewed with the patient today. PVR 37 mLs. He discusses his recent trip to [place]. When asked he denies any known family history of prostate cancer. He otherwise offers no other issues or concerns at this time. [facility] Medical History COVID-19 vaccine series completed Back pain Iron deficiency anemia Sleep difficulties Asthma Surgical History H/O umbilical hernia repair (01/30/21) Hx of colonoscopy [place] teeth removed H/O prostate biopsy Family History Father Cancer of spine Mother Emphysema, unspecified Social History Are you a primary hospice spiritual care coordinator to a significant other at home: No Do you presently have visiting nurse or other home services: No Patient Tobacco Use Status: Never used Tobacco Review of Systems Const Reports no additional complaints Eyes Reports no additional complaints ENT Reports no additional complaints Card Reports no additional complaints Resp Reports as per HPI GI Reports no additional complaints Reports as per HPI Musc Reports as per HPI Neuro Reports no additional complaints Psych Reports no additional complaints Endo Reports no additional complaints Terry/Lymph Reports as per HPI Aller/Immun Reports no additional complaints Physical Exam Const General: cooperative, healthy appearing, comfortable, no acute distress, well developed, alert and awake Nutritional Appearance: overweight Orientation/consciousness: patient oriented x3 Limitations: no limitations HEENT Head: Yes normal to inspection, Yes normocephalic and Yes atraumatic Ears: hearing grossly normal bilaterally Eyes General: appearance normal, both eyes and all related structures Neck Neck: Yes normal visual inspection and Yes trachea midline Chest Chest palpation & inspection: normal inspection of the chest Resp Effort & Inspection: normal respiratory effort and able to speak in complete sentences Cardio Rate: regular rate GI Inspection: Yes normal to inspection General: Yes no CVA tenderness Back/Spine/Pelvis Back: no CVA tenderness Skin General skin exam: no rashes or lesions noted Neuro General: patient oriented x3 Extrem General: Yes normal to inspection Psych Appearance: grossly normal and well kempt Mental Status: mental status grossly normal Speech and movement: Normal speech and movement present and Clear speech present Affect: normal affect Attitude: cooperative Thought process: Normal thought process present Thought content: Normal thought content present Insight: Fair insight present (Psych) Judgement: Fair judgement present (Psych) Results Reviewed Results Reviewed: Date of Service: 07/18/23 EXAMINATION: US RETROPERITONEAL LIMITED (RENAL ONLY) FINDINGS: RIGHT KIDNEY: 11.7 x 5.5 x 5.5 cm (SAG x AP x TRV). The kidney is normal in size, contour, and echogenicity. Renal cortical thickness is normal. No calculi or focal parenchymal lesions. No hydronephrosis. LEFT KIDNEY: 11.9 x 5.9 x 4.4 cm (SAG x AP x TRV). The kidney is normal in size, contour, and echogenicity. Renal cortical thickness is normal. No renal calculi or hydronephrosis. 5.2 cm simple exophytic cyst from the mid kidney. No imaging follow-up is recommended. IMPRESSION: No hydronephrosis. Date of Service: 07/24/23 EXAMINATION: US PELVIS LIMITED (BLADDER) FINDINGS: BLADDER: Well distended and normal. Bilateral ureteral jets are demonstrated. Prevoid bladder volume is 270.9 mL. Postvoid bladder volume is 210.6 mL, second postvoid 138 mL. Enlarged prostate, volume 117 mL. IMPRESSION: 1. Large post void residual. 2. Markedly enlarged prostate. Assessment & Plan Assessment & Plan (1) Enlarged prostate: Code(s): N40.0 - Benign prostatic hyperplasia without lower urinary tract symptoms Category: Medical (2) Elevated PSA: Code(s): R97.20 - Elevated prostate specific antigen [PSA] Category: Medical (3) Lower urinary tract symptoms: Code(s): R39.9 - Unspecified symptoms and signs involving the genitourinary system Category: Medical Plan: Plan Risks and benefits regarding trans rectal ultrasound with prostate biopsy were discussed.? Options of continued surveillance, no treatment and biopsy were offered. The risks include but are not limited to, urinary tract infection, sepsis, difficulty urinating, bleeding into the rectum or bladder that requires intervention and transfusion,and failure to diagnose prostate cancer. The patient understands the options and the risks involved. They wish to proceed. Printed information was provided to ensure he remains off anticoagulation for the appropriate length of time. He may require cardiology or PCP clearance.? An antibiotic will be administered prior to, and following the procedure Plan In office urinalysis results reviewed with the patient today; as noted above. Recent PSA results reviewed with the patient today; as noted above. Discussed at length elevated PSA as well as variability in PSA as noted and trended above. Discussed further treatment options to include surveillance monitoring verses MRI of the prostate verses prostate biopsy; risks and benefits of these interventions were discussed at length. He does report noting ongoing lower urinary tract symptoms however report they are intermittent; he does not find them bothersome at this time. Prescription provided for antibiotic therapy discussed importance of taking as prescribed; day before procedure, day of procedure, and day after procedure. Will schedule for prostate biopsy as discussed Follow-up per doctor's orders; or sooner with any issues, concerns, and or questions. Medications: New levofloxacin take 1 tablet day before procedure, 1 tablet day of procedure and 1 tablet day after procedure 500 mg PO daily 3 tabs 0RF 3 days Patient Instructions: The patient had an opportunity to ask questions regarding the treatment plan. All questions were answered. Physical exam, labs, and imaging were discussed and reviewed in detail. As well as risks, benefits, and discussion of treatment choices. No major barriers to understanding were identified. The patient expressed understanding and agreement with the above treatment plan. The patient was made aware they should contact our office by phone for worsening of their current condition, the appearance of new symptoms, or with any questions or concerns. Compliance is encouraged with any medications and follow up testing that is ordered. It is a privilege to be allowed the opportunity to participate in? your urological care.? Again, if you have any questions or concerns If you have any questions or concerns please do not hesitate to contact me. The office is [phone]. This note is constructed using voice recognition software. While every effort has been made to ensure accuracy baseball glove stuffer errors may have been included. Yours sincerely, SEAN Castro Coding Level of Care Code Est Pt Level 4 (35555) Diagnoses Enlarged prostate N40.0 Elevated PSA R97.20 Lower urinary tract symptoms R39.9
== END 2023-09-26 16:46 | disposition home or self-care (01) ==
PROVIDERS: Visit Provider Nurse Practitioner Family
DX: N40.0 Benign prostatic hyperplasia without lower urinary tract symptoms (principal); R97.20 Elevated prostate specific antigen [PSA]; R39.9 Unspecified symptoms and signs involving the genitourinary system
CPT/HCPCS: 99214

== ENCOUNTER → 2023-09-26 15:38 | Outpatient (BNVA) | payer OTHER, SELFPAY | PROVIDERS: Visit Provider Nurse Practitioner Family ==

== ENCOUNTER 2023-11-07 07:42 | Outpatient (REF) | payer OTHER, SELFPAY ==
--- NOTE | 2023-11-07 08:46 | W.PM.OPN ---
Operative Note Operative Note Date of Service: 11/07/23 Narrative: Preoperative diagnosis: Elevated PSA Postoperative diagnosis: Elevated PSA Procedure: 1. transrectal ultrasound measurement of prostate 2. transrectal ultrasound-guided pudendal nerve block 3. transrectal ultrasound-guided prostate biopsy 12 core Surgeon: Dr. Carlos Ying Anesthetic: 10cc 1% lidocaine Indications for procedure: Elevated PSA 12 Counselling: Technical aspects, risks and benefits of proposed procedure were discussed in full. All questions have been answered, written consent has been obtained and patient agrees to proceed. Procedure: The patient was brought into the procedure area and placed in a left lateral decubitus position. Patient identity confirmed. Perioperative antibiotics confirmed. Safety pause time out performed. TAMRA was performed to dilate rectal sphincter Iodine 10cc with 60 cc gel was placed per rectum to reduce infection risk using a catheter tip syringe. 8 Hz [place] rectal end-fire ultrasound probe was placed transrectally without difficulty. The prostate was visualized. Seminal vesicles were normal. Prostate margins were clearly demarcated. Bladder was seen superiorly. No cystic structures were noted calcifications were noted through the peripheral zone The prostate was otherwise heterogenous in nature The prostate was measured in 3 dimensions Prostatic Width: 6.5 cm Prostatic Height: 5.7 cm Urethral Length: 5.5 cm Total volume equals : 110 ml An ultrasound-guided pudendal nerve block was performed using a 22 gauge spinal needle in the sagittal plane. 4 cc of 1% lidocaine placed at the junction of each seminal vesicle and 2 cc placed at the apex of the prostate. A 12 core biopsy was performed with 6 cores each side using an 18 gauge prostate biopsy gun. Two cores each were taken at the prostate apex, mid and base on each side. Cores were spaced between lateral and medial aspects. Each core was examined as placed on specimen foam as part of quality control manager to ensure a minimum 1 cm of length and minimal discontinuity. He tolerated the procedure well with minimal rectal bleeding. Blood pressure remained stable following procedure. He was able to ambulate to bathroom after 5 minutes. Printed instructions regarding antibiotic use and common adverse events from the procedure such as low-grade temperature, potential infection and bleeding were given. He understands to call the office or go to an emergency room should any of these events arise. Pathology: 12 core prostate biopsy. CPT code 29618: Transrectal ultrasound; this is a diagnostic test for evaluation of the prostate and surrounding structures, looking for abnormalities or suspicious areas worrisome for cancer CPT code 65241: Biopsy, prostate; needle or punch, single or multiple, any approach CPT code 45204: Ultrasonic guidance for needle placement (eg, biopsy, aspiration, injection, localization device), imaging supervision and interpretation
[2023-11-07] MEDS: Lidocaine HCl 1 % MPF 30 ML VIAL SUBCUT (08:47)
== END 2023-11-07 07:43 | disposition home or self-care (01) ==
LOC: HO.US 07:42
PROVIDERS: Visit Provider Urology
DX: R97.20 Elevated prostate specific antigen [PSA] (principal)
CPT/HCPCS: 55700; 76942; 88305

== ENCOUNTER → 2023-11-07 07:42 | Outpatient (BNV) | payer OTHER, SELFPAY | PROVIDERS: Visit Provider Urology | DX: R97.20 Elevated prostate specific antigen [PSA] (principal) | CPT/HCPCS: 55700; 76872; 76942 ==

== ENCOUNTER 2023-11-22 14:34 | Outpatient (AMB) | payer OTHER, SELFPAY ==
--- NOTE | 2023-11-22 14:35 | A.OFFVIS_ITS ---
Intake Visit Reasons: Prostate bx results Intake Note: Patient is present for Prostate Biopsy results Incident Response Engineer Required: No Allergies Benadryl Allergy (Unknown, Uncoded 11/22/23 14:35) hives Medication List - Last Reconciled 11/22/23 by Carlos Ying MD albuterol sulfate 90 mcg/actuation 1 puff inhalation Q4-6H PRN finasteride 5 mg PO DAILY 90 days tadalafil 5 mg PO DAILY 90 days HPI Comments Details: Hector is a pleasant male. He is seen for the following urologic conditions - lower urinary tract symptoms - elevated PSA - prostatitis Discussed results from recent prostate biopsy Chronic inflammation Recommend finasteride Six-month follow-up repeat PSA Lower urinary tract symptoms Prior imaging with left renal 5.2 cm cyst PSAs: 03/05 17.5, 04/06 15.3, 08/04 10.7, 11/05 12.1, 11/05 1.4, 08/08 12.0, 09/08 12.3 Prostate biopsy negative PFSH Medical History (Reviewed 09/26/23 @ 17:38 by Lisa Sprague [facility]) COVID-19 vaccine series completed Back pain Iron deficiency anemia Sleep difficulties Asthma Surgical History H/O umbilical hernia repair (01/30/21) Hx of colonoscopy [place] teeth removed H/O prostate biopsy Family History Father Cancer of spine Mother Emphysema, unspecified Social History Are you a primary manager primary care to a significant other at home: No Do you presently have visiting nurse or other home services: No Patient Tobacco Use Status: Never used Tobacco Review of Systems Const All systems reviewed & are unremarkable except as noted in HPI and below Reports no additional complaints Resp Reports no additional complaints GI Reports no additional complaints Reports as per HPI Musc Reports no additional complaints Physical Exam Telemedicine evaluation Appropriate responses Regular breathing rate and rhythm HEENT Head: Yes normal to inspection Ears: hearing grossly normal bilaterally Eyes General: appearance normal, both eyes and all related structures Neck Neck: Yes normal visual inspection Chest Chest palpation & inspection: normal inspection of the chest Resp Effort & Inspection: normal respiratory effort and able to speak in complete sentences Telehealth Telehealth Telehealth Platform: Telephone Location of provider rendering services: practice address Location of patient: address on file Patient Identification confirmed using: Name, : Yes Telehealth method: voice only Patient verbally consented to treatment: Yes Patient verbally consented to billing insurance company: Yes Patient informed of any privacy concerns related to visit: Yes Assessment & Plan Assessment & Plan (1) Prostatitis: Code(s): N41.9 - Inflammatory disease of prostate, unspecified Category: Medical (2) Lower urinary tract symptoms: Code(s): R39.9 - Unspecified symptoms and signs involving the genitourinary system Category: Medical (3) Elevated PSA: Code(s): R97.20 - Elevated prostate specific antigen [PSA] Category: Medical Plan Six-month follow-up nurse-practitioner Finasteride and tadalafil Orders: Orders PSA,Total (Free>4and<10) 6 Months R39.9 - Unspecified symptoms and signs involving the genitourinary system Medications: New finasteride 5 mg PO DAILY 90 days 90 tabs 1RF N13.8 - Other obstructive and reflux uropathy, N40.1 - Benign prostatic hyperplasia with lower urinary tract symptoms, R33.9 - Retention of urine, unspecified, R39.9 - Unspecified symptoms and signs involving the genitourinary system tadalafil 5 mg PO DAILY 90 days 90 tabs 1RF bladder stability R39.198 - Other difficulties with micturition Patient Instructions: Imaging studies, laboratory and physical exam results were discussed and reviewed in detail. No major barriers to patient understanding were identified. An opportunity to ask questions regarding the treatment plan was provided. All questions were answered. The patient expressed understanding and agreement with the above treatment plan. The patient is aware they should contact our office by phone for worsening of their current condition or the appearance of new urologic symptoms. Compliance is encouraged with any medications and followup testing that is ordered. It is a privilege to participate in the urologic care of your patient. If you have any questions or concerns regarding treatment for the above conditions, or other urologic issues, please do not hesitate to contact me. The office telephone contact is [phone]. This note is constructed using voice recognition software. While every effort has been made to ensure accuracy flow floor attendant errors may have been included. Yours sincerely, Dr Carlos Ying MD, [facility] Providers of Expert, Compassionate Care for the Genitourinary System Coding Level of Care Code Tele Est Pt Level 3 (44026) Diagnoses Prostatitis N41.9 Lower urinary tract symptoms R39.9 Elevated PSA R97.20
== END 2023-11-22 15:56 | disposition home or self-care (01) ==
LOC: HO.HUSH 14:34
PROVIDERS: Visit Provider Urology
DX: N41.9 Inflammatory disease of prostate, unspecified (principal); R39.9 Unspecified symptoms and signs involving the genitourinary system; R97.20 Elevated prostate specific antigen [PSA]
CPT/HCPCS: 99213

== ENCOUNTER → 2023-11-22 14:34 | Outpatient (BNVA) | payer OTHER, SELFPAY | PROVIDERS: Visit Provider Urology ==

== ENCOUNTER 2024-05-16 08:28 | Outpatient (REF) | payer OTHER, SELFPAY ==
[2024-05-16 11:59] LABS: PSA,Total (Free>4and<10) 17.53 ng/mL (0.00-4.00)
== END 2024-05-16 08:29 | disposition home or self-care (01) ==
LOC: HO.LAB 08:28
PROVIDERS: Visit Provider Nurse Practitioner Family
DX: R39.9 Unspecified symptoms and signs involving the genitourinary system (principal); Z12.5 Encounter for screening for malignant neoplasm of prostate
CPT/HCPCS: 36415; 84153

== ENCOUNTER 2024-05-21 14:14 | Outpatient (AMB) | payer OTHER, SELFPAY ==
--- NOTE | 2024-05-21 14:17 | A.OFFVIS_ITS ---
Intake Visit Reasons: 6m/PSA Intake Note: Patient presents for follow up visit on PSA PSA: 17.53 Urology Medications: Finasteride, Tadalafil Blood Thinner: none Antibiotic Allergy:none Director Of Anesthesia Services Required: No Accompanied by: Self / Same As Patient Allergies Benadryl Allergy (Unknown, Uncoded 05/21/24 17:22) hives Medication List - Last Reconciled 05/21/24 by NIKHIL CastroP- albuterol sulfate 90 mcg/actuation 1 puff inhalation Q4-6H PRN finasteride 5 mg PO DAILY 90 days tadalafil 5 mg PO DAILY 90 days HPI Comments Details: Tej is a very pleasant 58-year-old male patient. He has a past medical history of iron deficiency anemia, asthma, and back pain. He presents to the office today for follow-up of his lower urinary tract symptoms and elevated PSA. Of note, patient underwent prostate biopsy with Dr. Ying 11/08 that noted chronic inflammation and recommendations were made for initiation of finasteride. In discussion with the patient today he does endorse to intermittent noncompliance with finasteride as he feels this has caused him to have weight gain and feels fatigued. Recent PSA results reviewed with the patient today as noted and trended below. Previous workup has also included a retroperitoneal ultrasound 08/08 noting bilateral kidneys with no hydronephrosis or calculi noted. Left kidney with 5.2 cm simple cyst from the mid kidney. No imaging follow-up is recommended per radiology report. The bladder is well distended and normal. Bilateral ureteral jets are demonstrated. PSAs are as follows: PSAs: 03/05 17.5, 04/06 15.3, 08/04 10.7, 11/05 12.1, 11/05 1.4, 08/08 12.0, 09/08 12.3, 05/12 17.5 We discussed increase in PSA and potential causes for this issue. He currently denies any bothersome urinary issues or concerns. He had previously had intermittent episodes of urinary urgency and frequency however feels these have improved with daily dosing of 5 mg of Cialis. We discussed obtaining MRI of the prostate for further assessment evaluation. In office urinalysis results reviewed with the patient today. He denies any known family history of prostate cancer. He otherwise offers no other issues or concerns at this time. [facility] Medical History COVID-19 vaccine series completed Back pain Iron deficiency anemia Sleep difficulties Asthma Surgical History H/O umbilical hernia repair (01/30/21) Hx of colonoscopy [place] teeth removed H/O prostate biopsy Family History Father Cancer of spine Mother Emphysema, unspecified Social History Are you a primary before and after school daycare worker to a significant other at home: No Do you presently have visiting nurse or other home services: No Patient Tobacco Use Status: Never used Tobacco Review of Systems Const Reports no additional complaints Eyes Reports no additional complaints ENT Reports no additional complaints Card Reports no additional complaints Resp Reports as per HPI GI Reports no additional complaints Reports as per HPI Musc Reports as per HPI Neuro Reports no additional complaints Psych Reports no additional complaints Endo Reports no additional complaints Terry/Lymph Reports as per HPI Aller/Immun Reports no additional complaints Physical Exam Const General: cooperative, healthy appearing, comfortable, no acute distress, well developed, alert and awake Orientation/consciousness: patient oriented x3 Limitations: no limitations HEENT Head: Yes normal to inspection, Yes normocephalic and Yes atraumatic Ears: hearing grossly normal bilaterally Eyes General: appearance normal, both eyes and all related structures Neck Neck: Yes normal visual inspection and Yes trachea midline Chest Chest palpation & inspection: normal inspection of the chest Resp Effort & Inspection: normal respiratory effort and able to speak in complete sentences Cardio Rate: regular rate GI Inspection: Yes normal to inspection General: Yes no CVA tenderness Back/Spine/Pelvis Back: no CVA tenderness Skin General skin exam: no rashes or lesions noted Neuro General: patient oriented x3 Extrem General: Yes normal to inspection Psych Appearance: grossly normal and well kempt Mental Status: mental status grossly normal Speech and movement: Normal speech and movement present and Clear speech present Affect: normal affect Attitude: cooperative Thought process: Normal thought process present Thought content: Normal thought content present Insight: Fair insight present (Psych) Judgement: Fair judgement present (Psych) Results AMB Urinalysis, Automated UA Leukoctes 0 Arben/uL Last Edit by Sara Bosch on 05/21/24 14:29 UA Nitrite Negative Last Edit by Sara Bosch on 05/21/24 14:29 UA Urobilinogen 3.5 mg/dL Last Edit by Sara Bosch on 05/21/24 14:29 UA Protein 1 mg/dL Last Edit by Sara Bosch on 05/21/24 14:29 UA pH 6.0 Last Edit by Sara Bosch on 05/21/24 14:29 UA Blood 0 Gonzalez/uL Last Edit by Sara Bosch on 05/21/24 14:29 UA Specific Walton 1.020 Last Edit by Sara Bosch on 05/21/24 14:29 UA Ketone Negative Last Edit by Sara Bosch on 05/21/24 14:29 UA Bilirubin 0 mg/dL Last Edit by Sara Bosch on 05/21/24 14:29 UA Glucose 0 mg/dL Last Edit by Sara Bosch on 05/21/24 14:29 Results Reviewed Results Reviewed: Laboratory Last Values Urine pH (Auto) 6.0 05/21/24 13:37 Specific Walton (Auto) 1.020 05/21/24 13:37 Urine Protein (Auto) 1 mg/dL 05/21/24 13:37 Glucose (UA)(Auto) 0 mg/dL 05/21/24 13:37 Urine Ketones (Auto) Negative 05/21/24 13:37 Urine Blood (Auto) 0 Gonzalez/uL 05/21/24 13:37 Urine Nitrite (Auto) Negative 05/21/24 13:37 Urine Bilirubin (Auto) 0 mg/dL 05/21/24 13:37 Urine Urobilinogen (Auto) 3.5 mg/dL 05/21/24 13:37 Leukocyte Esterase (Auto) 0 Arben/uL 05/21/24 13:37 Assessment & Plan Assessment & Plan (1) Lower urinary tract symptoms: Code(s): R39.9 - Unspecified symptoms and signs involving the genitourinary system Category: Medical (2) Prostatitis: Code(s): N41.9 - Inflammatory disease of prostate, unspecified Category: Medical (3) Enlarged prostate: Code(s): N40.0 - Benign prostatic hyperplasia without lower urinary tract symptoms Category: Medical (4) Elevated PSA: Code(s): R97.20 - Elevated prostate specific antigen [PSA] Category: Medical Plan In office urinalysis results reviewed with the patient today; as noted above. Recent PSA results reviewed with the patient today; as noted above. We discussed increase in PSA today and potential causes for this issue. Patient currently denies any bothersome urinary issues or concerns. He reports be happy with current voiding parameters. Continue Cialis and finasteride as prescribed. Will obtain MRI of the prostate for further assessment evaluation. Will obtain PSA in 3-4 months. Follow-up in 3-4 months with imaging and lab to be completed prior; or sooner with any issues, concerns, and or questions. Orders: Orders PSA,Total (Free>4and<10) 05/16/24 R39.9 - Unspecified symptoms and signs involving the genitourinary system MR pelvis wo/w con Today C61 - Malignant neoplasm of prostate AMB Urinalysis Automated Today Z13.9 - Encounter for screening, unspecified Patient Instructions: The patient had an opportunity to ask questions regarding the treatment plan. All questions were answered. Physical exam, labs, and imaging were discussed and reviewed in detail. As well as risks, benefits, and discussion of treatment choices. No major barriers to understanding were identified. The patient expressed understanding and agreement with the above treatment plan. The patient was made aware they should contact our office by phone for worsening of their current condition, the appearance of new symptoms, or with any questions or concerns. Compliance is encouraged with any medications and follow up testing that is ordered. It is a privilege to be allowed the opportunity to participate in? your urological care.? Again, if you have any questions or concerns If you have any questions or concerns please do not hesitate to contact me. The office is [phone]. This note is constructed using voice recognition software. While every effort has been made to ensure accuracy spinal surgeon errors may have been included. Yours sincerely, SEAN Castro Coding Level of Care Code Est Pt Level 3 (62370) Diagnoses Lower urinary tract symptoms R39.9 Prostatitis N41.9 Enlarged prostate N40.0 Elevated PSA R97.20
--- OUTSIDE RECORDS SUMMARY | 2024-05-21 17:27 | XMS_ITS | Data Portability ---
Author Organization [facility] [address] Address [address] [place] [address] Assessment No assessment recorded. Plan of Treatment Reminders Order Date Submit Date Provider Last Modified By Organization Details Last Modified Time Details Appointments None record ed. Lab None record ed. Referral None record ed. Procedures None record ed. Surgeries None record ed. Imaging None record ed. Medication Orders None record ed. Patient TargetsNo targets recorded. Patient InstructionsNo instructions recorded. Reason for Referral None Reported. Procedures Surgical History Date Name Laterality Status Provider Name and Address Organization Details Recorded Time [facility]-UDS Send Out Template DOT completed Andreia Buckley [employer] 02/10/2024 13:28:41 Imaging Results None recorded. Procedure Notes None recorded. Medical Equipment None Reported. Medications Name Sig Start Date Stop Date Status Note LastModified by Organization Details LastModified Time sulfamethoxaz ole 800 mg-trimethopr im 160 mg tablet TAKE 1 TABLET BY MOUTH TWICE A DAY FOR 14 DAYS active Not Available Not Available No t Available levofloxacin 500 mg tablet TAKE 1 TABLET BY MOUTH DAILY FOR 3 DAYS (DAY BEFORE, DAY OF, AND DAY AFTER PROCEDURE) active Not Available Not Available N ot Available albuterol sulfate HFA 90 mcg/actuation aerosol inhaler INHALE 2 PUFFS INTO THE LUNGS EVERY 6 HOURS NEEDED FOR WHEEZING OR SHORTNESS OF BREATH/DYS PNEA active Not Available Not Available No t Available finasteride 5 mg tablet TAKE 1 TABLET BY MOUTH EVERY DAY FOR 90 DAYS active Not Available Not Available No t Available tadalafil 5 mg tablet TAKE 1 TABLET BY MOUTH DAILY FOR BLADDER STABILITY FOR 90 DAYS active Not Available Not Available No t Available Vitals None Recorded Social History None recorded. Functional Status None recorded. Mental Status None recorded. Family History Nothing Reported. Medical History No medical history recorded. Past Encounters Encounter ID Performer Location Encounter Start Date Encounter Closed Date Diagnosis/Indication Diagnosis SNOMED-CT Code Diagnosis ICD10 Code Diagnosis Note [id number] [address] [place] [address] 06/09/2020 13:00:49 06/09/2020 13:55:20 [id number] SHARON TAMAYO [address] [address] 02/10/2024 13:03:57 02/10/2024 13:34:36 History and physical examination, occupation [id number] Z02.1 Health Concerns Section Related Observation LastModified by Organization Detai ls LastModified Time None Recorded Concern Status LastModified by Organization Details LastModified Time None Recorded Advance Directives Directive None Recorded Payers Encounter Date Sequence Insurance Name Policy Number Policy Vasquez Covered Member ID Vasquez Member ID Guarantor Name 02/10/2024 [employer]-ESCREEN [employer] n [id number] Tej Knox
== END 2024-05-21 15:15 | disposition home or self-care (01) ==
PROVIDERS: Visit Provider Nurse Practitioner Family
DX: R39.9 Unspecified symptoms and signs involving the genitourinary system (principal); N41.9 Inflammatory disease of prostate, unspecified; N40.0 Benign prostatic hyperplasia without lower urinary tract symptoms; R97.20 Elevated prostate specific antigen [PSA]; Z13.9 Encounter for screening, unspecified
CPT/HCPCS: 99213

== ENCOUNTER → 2024-05-21 14:14 | Outpatient (BNVA) | payer OTHER, SELFPAY | PROVIDERS: Visit Provider Nurse Practitioner Family | DX: R39.9 Unspecified symptoms and signs involving the genitourinary system (principal); N41.9 Inflammatory disease of prostate, unspecified; N40.0 Benign prostatic hyperplasia without lower urinary tract symptoms; R97.20 Elevated prostate specific antigen [PSA] | CPT/HCPCS: 81003 ==

== ENCOUNTER 2024-08-07 07:31 | Outpatient (REF) | payer OTHER, SELFPAY ==
--- NOTE | ~2024-08-07 | MR_ITS ---
EXAMINATION: MR PROSTATE WITHOUT THEN WITH IV CONTRAST HISTORY: C61 - Malignant neoplasm of prostate TECHNIQUE: 1.5T body coil survey of the pelvis was performed. Phase array coil imaging of the prostate was performed in multiplanar high resolution axial, coronal, sagittal fast spin echo T2 and axial T1 weighted imaging sequences. Axial diffusion imaging at intermediate and high field performed with ADC mapping. Next, 10 mL Gadavist was given by intravenous infusion, and dynamic axial imaging performed. COMPARISON: There are no prior studies for comparison. CLINICAL DATA: Most recent PSA: 8.55 ng/mL on 08/07/2024 (17.53 ng/mL on 05/16/2024) PSA Density: 0.077 ng/mL squared Prostate Biopsy: Negative biopsy on 11/07/2023. FINDINGS: Prostate size: 6.1 x 5.9 x 5.9 cm. Calculated prostate volume is 110.4 mL. Hemorrhage: None. Transitional Zone: There is marked heterogeneous nodular hypertrophy of the transitional zone. Peripheral Zone: There are linear foci of decreased T2 signal intensity within the peripheral zone which can be seen in the setting of prostatitis of scarring. No discrete mass is seen. There are no foci of restricted diffusion. Seminal Vesicles/Ejaculatory Ducts: Symmetric and normal in signal and caliber. Pelvic Lymph Nodes: No obturator or internal iliac lymph nodes meeting size criteria for adenopathy. Marrow Signal: Normal marrow signal and enhancement without focal lesion identified. MR/MR Prostate wo/w con IMPRESSION: No discrete focus of abnormal signal intensity is identified to suggest clinically significant prostate carcinoma. PI-RADS 2: Low (clinically significant cancer is unlikely to be present) PI-RADS Assessment Categories PI-RADS 1: Very low (clinically significant cancer is highly unlikely to be present) PI-RADS 2: Low (clinically significant cancer is unlikely to be present) PI-RADS 3: Intermediate (the presence of clinically significant cancer is equivocal) PI-RADS 4: High (clinically significant cancer is likely to be present) PI-RADS 5: Very high (clinically significant cancer is highly likely to be present) [employer]. MR Prostate Imaging Reporting and Data System version 2.1. [email or web address] Electronically signed by: Nitin Guevara MD 08/07/2024 10:37 AM EDT
[2024-08-07 09:22] LABS: PSA,Total (Free>4and<10) 8.55 ng/mL (0.00-4.00)
[2024-08-07] MEDS: gadobutroL 10 ML VIAL IVPUSH (09:49)
== END 2024-08-07 07:32 | disposition home or self-care (01) ==
LOC: HO.MRI 07:31
PROVIDERS: Visit Provider Nurse Practitioner Family
DX: C61 Malignant neoplasm of prostate (principal); N52.1 Erectile dysfunction due to diseases classified elsewhere; Z12.5 Encounter for screening for malignant neoplasm of prostate
CPT/HCPCS: 36415; 72197; 84153; 84154; A9585

== ENCOUNTER → 2024-08-07 07:37 | Outpatient (BNV) | payer OTHER, SELFPAY | PROVIDERS: Visit Provider Radiology Diagnostic Radiology | DX: C61 Malignant neoplasm of prostate (principal) | CPT/HCPCS: 72197 ==

== ENCOUNTER 2024-08-20 13:58 | Outpatient (AMB) | payer OTHER, SELFPAY ==
--- NOTE | 2024-08-20 14:17 | A.OFFVIS_ITS ---
Intake Visit Reasons: 3m/MRI/PSA(set) Intake Note: Patient presents for 3 month follow up visit, MRI and PSA Urology Medications: Finasteride, Tadalafil Blood Thinner: none Antibiotic Allergy:none PVR: 2ml's Site Safety Manager Required: No Accompanied by: Self / Same As Patient Allergies Benadryl Allergy (Unknown, Uncoded 05/21/24 17:22) hives Medication List - Last Reconciled 08/20/24 by JIMBO Castro albuterol sulfate 90 mcg/actuation 1 puff inhalation Q4-6H PRN finasteride 5 mg PO DAILY 90 days tadalafil 5 mg PO DAILY 90 days HPI Comments Details: Tej is a very pleasant 59-year-old male patient. He has a past medical history of iron deficiency anemia, asthma, and back pain. He presents to the office today for follow-up of his lower urinary tract symptoms and elevated PSA. In discussion with the patient today reports to be doing and feeling well. He denies having had any bothersome urinary issues or concerns since his last office visit. He reports compliance with finasteride and Cialis as prescribed. He discusses noting significant improvement in episodes of urinary urgency he had been experiencing. Recent PSA results reviewed with the patient today as noted and trended below. We discussed significant decrease in PSA in the last 3 months. However PSA remains elevated. MRI results were reviewed and communicated with the patient today. 08/09 no discrete focus of abnormal signal intensity is identified to suggest clinically significant prostate carcinoma. PI-RADS 2. Previous workup has also included a retroperitoneal ultrasound 08/08 noting bilateral kidneys with no hydronephrosis or calculi noted. Left kidney with 5.2 cm simple cyst from the mid kidney. No imaging follow-up is recommended per radiology report. The bladder is well distended and normal. Bilateral ureteral jets are demonstrated. PSAs are as follows: PSAs: 03/05 17.5, 04/06 15.3, 08/04 10.7, 11/05 12.1, 11/05 1.4, 08/08 12.0, 09/08 12.3, 05/12 17.5, 08/09 9.0 % free PSA 9% Patient underwent prostate biopsy 11/08 with noting 12 core biopsy with benign prostatic tissue negative for malignancy. Patchy chronic inflammation is present. In office urinalysis results reviewed with the patient today. He denies any known family history of prostate cancer. He denies urinary urgency, urinary frequency, incontinence, nocturia, hematuria, dysuria, foul smelling urine, changes to urinary stream, flank pain, fever, and or chills. He is happy with her current voiding parameters. 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 He otherwise offers no other issues or concerns at this time. [facility] Medical History COVID-19 vaccine series completed Back pain Iron deficiency anemia Sleep difficulties Asthma Surgical History H/O umbilical hernia repair (01/30/21) Hx of colonoscopy [place] teeth removed H/O prostate biopsy Family History Father Cancer of spine Mother Emphysema, unspecified Social History Are you a primary med care manager to a significant other at home: No Do you presently have visiting nurse or other home services: No Patient Tobacco Use Status: Never used Tobacco Review of Systems Const Reports no additional complaints Eyes Reports no additional complaints ENT Reports no additional complaints Card Reports no additional complaints Resp Reports as per HPI GI Reports no additional complaints Reports as per HPI Musc Reports as per HPI Neuro Reports no additional complaints Psych Reports no additional complaints Endo Reports no additional complaints Terry/Lymph Reports as per HPI Aller/Immun Reports no additional complaints Physical Exam Const General: cooperative, healthy appearing, comfortable, no acute distress, well developed, alert and awake Orientation/consciousness: patient oriented x3 Limitations: no limitations HEENT Head: Yes normal to inspection, Yes normocephalic and Yes atraumatic Ears: hearing grossly normal bilaterally Eyes General: appearance normal, both eyes and all related structures Neck Neck: Yes normal visual inspection and Yes trachea midline Chest Chest palpation & inspection: normal inspection of the chest Resp Effort & Inspection: normal respiratory effort and able to speak in complete sentences Cardio Rate: regular rate GI Inspection: Yes normal to inspection General: Yes no CVA tenderness Back/Spine/Pelvis Back: no CVA tenderness Skin General skin exam: no rashes or lesions noted Neuro General: patient oriented x3 Extrem General: Yes normal to inspection Psych Appearance: grossly normal and well kempt Mental Status: mental status grossly normal Speech and movement: Normal speech and movement present and Clear speech present Affect: normal affect Attitude: cooperative Thought process: Normal thought process present Thought content: Normal thought content present Insight: Fair insight present (Psych) Judgement: Fair judgement present (Psych) Office Procedures Post Void Residual Post Residual Void Post Void Residual (PVR): 2 05013-Whpy Void Residual by ultrasound Results AMB Urinalysis, Automated UA Leukoctes 0 Arben/uL Last Edit by Jason Adams [facility] on 08/20/24 14:42 UA Nitrite Last Edit by Jason Adams [facility] on 08/20/24 14:42 UA Urobilinogen 0.2 mg/dL Last Edit by Jason Adams [facility] on 08/20/24 14:42 UA Protein 15 mg/dL Last Edit by Jason Adams [facility] on 08/20/24 14:42 UA pH 6.0 Last Edit by Jason Adams [facility] on 08/20/24 14:42 UA Blood 0 Gonzalez/uL Last Edit by Jason Adams [facility] on 08/20/24 14:42 UA Specific [place] 1.020 Last Edit by Jason Adams [facility] on 08/20/24 14:42 UA Ketone Last Edit by Jason Adams [facility] on 08/20/24 14:42 UA Bilirubin 0 mg/dL Last Edit by Jason Adams [facility] on 08/20/24 14:42 UA Glucose 0 mg/dL Last Edit by Jason Adams [facility] on 08/20/24 14:42 Results Reviewed Results Reviewed: Laboratory Last Values Urine pH (Auto) 6.0 08/20/24 14:39 Specific [place] (Auto) 1.020 08/20/24 14:39 Urine Protein (Auto) 15 mg/dL 08/20/24 14:39 Glucose (UA)(Auto) 0 mg/dL 08/20/24 14:39 Urine Blood (Auto) 0 Gonzalez/uL 08/20/24 14:39 Urine Bilirubin (Auto) 0 mg/dL 08/20/24 14:39 Urine Urobilinogen (Auto) 0.2 mg/dL 08/20/24 14:39 Leukocyte Esterase (Auto) 0 Arben/uL 08/20/24 14:39 Date of Service: 08/07/24 Procedure(s): MR Prostate wo/w con FINDINGS: Prostate size: 6.1 x 5.9 x 5.9 cm. Calculated prostate volume is 110.4 mL. Hemorrhage: None. Transitional Zone: There is marked heterogeneous nodular hypertrophy of the transitional zone. Peripheral Zone: There are linear foci of decreased T2 signal intensity within the peripheral zone which can be seen in the setting of prostatitis of scarring. No discrete mass is seen. There are no foci of restricted diffusion. Seminal Vesicles/Ejaculatory Ducts: Symmetric and normal in signal and caliber. Pelvic Lymph Nodes: No obturator or internal iliac lymph nodes meeting size criteria for adenopathy. Marrow Signal: Normal marrow signal and enhancement without focal lesion identified. IMPRESSION: No discrete focus of abnormal signal intensity is identified to suggest clinically significant prostate carcinoma. PI-RADS 2: Low (clinically significant cancer is unlikely to be present) PI-RADS Assessment Categories PI-RADS 1: Very low (clinically significant cancer is highly unlikely to be present) PI-RADS 2: Low (clinically significant cancer is unlikely to be present) PI-RADS 3: Intermediate (the presence of clinically significant cancer is equivocal) PI-RADS 4: High (clinically significant cancer is likely to be present) PI-RADS 5: Very high (clinically significant cancer is highly likely to be present) Assessment & Plan Assessment & Plan (1) Lower urinary tract symptoms: Code(s): R39.9 - Unspecified symptoms and signs involving the genitourinary system Category: Medical (2) Prostatitis: Code(s): N41.9 - Inflammatory disease of prostate, unspecified Category: Medical (3) Enlarged prostate: Code(s): N40.0 - Benign prostatic hyperplasia without lower urinary tract symptoms Category: Medical (4) Elevated PSA: Code(s): R97.20 - Elevated prostate specific antigen [PSA] Category: Medical Plan In office urinalysis results reviewed with the patient today; as noted above. PVR 2 mL Recent PSA results reviewed with the patient today; as noted above. Recent prostate MRI results reviewed with the patient today; as noted above. Patient currently denies any bothersome urinary issues or concerns. He reports be happy with current voiding parameters. Will continue Cialis as well as finasteride as prescribed; refills provided. Will continue with surveillance monitoring Will obtain PSA in 6 months Follow-up in 6 months with PSA; or sooner with any issues, concerns, and or questions Orders: Orders AMB Urinalysis Automated Today Z13.9 - Encounter for screening, unspecified AMB Post Void Residual by ultrasound Today R39.9 - Unspecified symptoms and signs involving the genitourinary system Medications: Refilled tadalafil 5 mg PO DAILY 90 days 90 tabs 3RF bladder stability R39.198 - Other difficulties with micturition finasteride 5 mg PO DAILY 90 days 90 tabs 3RF N13.8 - Other obstructive and reflux uropathy, N40.1 - Benign prostatic hyperplasia with lower urinary tract symptoms, R33.9 - Retention of urine, unspecified, R39.9 - Unspecified symptoms and signs involving the genitourinary system Patient Instructions: The patient had an opportunity to ask questions regarding the treatment plan. All questions were answered. Physical exam, labs, and imaging were discussed and reviewed in detail. As well as risks, benefits, and discussion of treatment choices. No major barriers to understanding were identified. The patient e xpressed understanding and agreement with the above treatment plan. The patient was made aware they should contact our office by phone for worsening of their current condition, the appearance of new symptoms, or with any questions or concerns. Compliance is encouraged with any medications and follow up testing that is ordered. It is a privilege to be allowed the opportunity to participate in? your urological care.? Again, if you have any questions or concerns If you have any questions or concerns please do not hesitate to contact me. The office is [phone]. This note is constructed using voice recognition software. While every effort has been made to ensure accuracy structural metal fabricator apprentice errors may have been included. Yours sincerely, SEAN Castro Coding Level of Care Code Est Pt Level 3 (08911) Complex EM visit Add On G2211 Diagnoses Lower urinary tract symptoms R39.9 Prostatitis N41.9 Enlarged prostate N40.0 Elevated PSA R97.20 CPT Codes Post Residual Void - PVR CPT Code: 39050-Hfnm Void Residual by ultrasound ([id number])
--- OUTSIDE RECORDS SUMMARY | 2024-08-20 16:34 | XMS_ITS | Data Portability ---
Author Organization SHARON Buckley [employer], [address] Address [address] [place] [address] Assessment No assessment recorded. Plan of Treatment [...] Send Out Template DOT completed Andreia Buckley [employer] 02/10/2024 13:28:41 Imaging Results None recorded. Procedure [...] SNOMED-CT Code Diagnosis ICD10 Code Diagnosis Note [id number] _[address] [place] [address] 06/09/2020 13:00:49 06/09/2020 13:55:20 [id number] SHARON TAMAYO [address] [address] 02/10/2024 13:03:57 02/10/2024 13:34:36 History and physical examination, occupation [id number] Z02.1 Health Concerns Section Related Observation LastModified by Organization Detai ls LastModified Time None Recorded Concern Status LastModified by Organization Details LastModified Time None Recorded Advance Directives Directive None Recorded Payers Insurance Date Sequence Insurance Name Policy Number Policy Vasquez Covered Member ID Vasquez Member ID Guarantor Name 02/10/2024 OC-ESCREEN Oc-Escree n [[id number]] [id number] Tej Knox
== END 2024-08-20 15:24 | disposition home or self-care (01) ==
LOC: HO.HUSH 13:58
PROVIDERS: Visit Provider Nurse Practitioner Family
DX: R39.9 Unspecified symptoms and signs involving the genitourinary system (principal); N41.9 Inflammatory disease of prostate, unspecified; N40.0 Benign prostatic hyperplasia without lower urinary tract symptoms; R97.20 Elevated prostate specific antigen [PSA]; Z13.9 Encounter for screening, unspecified
CPT/HCPCS: 99213

== ENCOUNTER → 2024-08-20 13:58 | Outpatient (BNVA) | payer OTHER, SELFPAY | PROVIDERS: Visit Provider Nurse Practitioner Family | DX: N40.0 Benign prostatic hyperplasia without lower urinary tract symptoms (principal); R97.20 Elevated prostate specific antigen [PSA]; R39.9 Unspecified symptoms and signs involving the genitourinary system; N41.9 Inflammatory disease of prostate, unspecified; Z13.9 Encounter for screening, unspecified | CPT/HCPCS: 51798; 81003 ==

== ENCOUNTER 2025-02-13 08:17 | Outpatient (REF) | payer OTHER, SELFPAY ==
--- OUTSIDE RECORDS SUMMARY | 2025-02-13 08:20 | XMS_ITS | Data Portability ---
Author Organization SHARON Buckley [employer] [address] Address [address] [place] [address] Assessment No assessment recorded. Plan of Treatment [...] OC-UDS Send Out Template DOT completed Andreia Contreras [employer] 02/10/2024 13:28:41 Imaging Results None recorded. Procedure [...] Diagnosis SNOMED-CT Code Diagnosis ICD10 Code Diagnosis IMO Codes Diagnosis Note [id number] _[address] [place] [address] 06/09/2020 13:00:49 06/09/2020 13:55:20 [id number] SHARON TAMAYO [address] [address] 02/10/2024 13:03:57 02/10/2024 13:34:36 History and physical examination, occupation [id number] Z02.1 Health Concerns Section Related Observation LastModified by Organization Detai ls LastModified Time None Recorded Concern Status LastModified by Organization Details LastModified Time None Recorded Advance Directives Directive None Recorded Payers Insurance Date Sequence Insurance Name Policy Number Policy Vasquez Covered Member ID Vasquez Member ID Guarantor Name 02/10/2024 OC-ESCREEN [employer]c-Escree n [[id number]] [id number] Tej Knox
--- OUTSIDE RECORDS SUMMARY | 2025-02-13 08:20 | XMS_ITS | Clinical Summary ---
Author Organization [facility] Address [address] [address] Phone Care Team Providers Care Supervisory Training Specialist Name Role Phone Dave Pettit MD Primary Care Provider [phone] Allergies Active Allergy Reactions Criticality Noted Date Comments Diphenhydramine Hives 01/04/2022 Medications tadalafiL (CIALIS) 5 MG tablet Take 5 mg by mouth daily. 4 Active finasteride (PROSCAR) 5 mg tablet Take 1 tablet by mouth every morning. 4 Active albuterol 90 mcg/actuation inhaler INHALE 2 PUFFS INTO THE LUNGS EVERY 6 HOURS NEEDED FOR WHEEZING OR SHORTNESS OF BREATH/DYSPNEA 18 g 1 5 Active Active Problems Problem Noted Date Diagnosed Date Benign prostatic hyperplasia without lower urinary tract symptoms 09/03/2023 Assessment & Plan (11/28/2023 5:07 PM EDT): Continue with urology as scheduled Assessment & Plan (09/05/2023 6:00 PM EDT): Managed by [facility] urology. Notes that he is not interested in medication treatment at this time Mild intermittent asthma without complication Assessment & Plan (09/05/2023 6:00 PM EDT): Chronic and stable. Refill for albuterol inhaler sent to pharmacy Encounters Date Type Department Care Team Description 12/03/2024 Refill [facility] [address] [place] [address] Stefanie Gallardo, CHRIS Medication Refill from Last 3 Months Immunizations Immunization Administration Dates Next Due Influenza Quadrivalent w/ Preservative IM 2020,01/02/2017,12/01/2015 Tdap 01/04/2022 Family History Relation Status Comments Father Mother Social History Tobacco Use Types Packs/Day Years Used Date Smoking Tobacco: Never Passive Smoke Exposure: Never Smokeless Tobacco: Never Tobacco Cessation:Counseling Given: No Alcohol Use Standard Drinks/Week Comments Not Currently 0 (1 standard drink = 0.6 oz pur e alcohol) gave up drinking in 2007 Child or Family Care Answer Date Record ed Do you have problems with on e of the following making it difficult for you to work, study, or receive health care? No 09/03/2023 Education Answer Date Recorded Are you interested in help w ith more adult education (for example, completing high school, GED, job training, learning the [place] language, technical skills, or developing parenting skills)? No 09/03/2023 Are you concerned about learning? Not on file 09/03/2023 No 09/03/2023 Yes 09/03/2023 Food Answer Date Recorded Within the past 6 months we worried whether our food would run out before we got money to buy more. Never True 09/03/2023 Within the past 6 months the food we bought just didn't last and we didn't have enough money to get more. Never True Residential Stability Answer Date Recor ded What is your housing situation today? I have galileo stevenson 09/03/2023 How many times have you move d in the past 12 months? Zero (I did not move) 09/03/2023 Paying for Meds Answer Date Recorded Do you have trouble paying for medicines? No 09/03/2023 Paying Utility Bills Answer Date Record ed Do you have trouble paying y our heating or electricity bill? I choose not to answer 09/03/2023 Transportation Answer Date Recorded Has the lack of transportati on kept you from medical appointments or from getting medications? No 09/03/2023 Digital Access Answer Date Recorded Yes 09/03/2023 Yes 09/03/2023 Do you have reliable internet access at home? No 09/03/2023 Do you have a device (e.g., phone, tablet, computer) with a working camera? Yes 09/03/2023 Intimate Partner Violence Answer Date R ecorded Denied Basic Needs Not on file 11/28/2023 In the past 12 months have y ou been in a relationship with a person who hurts, threatens, or tries to control you? No 11/28/2023 Worried food would run out Not on file 11/27 In the past 12 months have y ou been in a relationship with a person who hurts, threatens, or tries to control you? No 11/28/2023 Sex and Gender Information Value Date Recorded Sex Assigned at Not on file Legal Sex Male 9:20 AM EST Gender Identity Not on file Sexual Orientation Not on file Last Filed Vital Signs Vital Sign Reading Time Taken Comments Blood Pressure 127/70 11/28/2023 3:27 PM EDT Pulse 76 11/28/2023 3:27 PM EDT Temperature - - Respiratory Rate - - Oxygen Saturation 97% 11/28/2023 3:27 PM EDT Inhaled Oxygen Concentration - - Weight 107.5 kg (237 lb) 11/28/2023 3:27 PM EDT Height 180.3 cm (5' 11 ) 11/28/2023 3:27 PM EDT Body Mass Index 33.05 11/28/2023 3:27 PM EDT Plan of Treatment Health Maintenance Due Date Last Done Comments LIPID PANEL 1964 HEPATITIS C SCREENING 1982 HIV ONE-TIME SCREENING (18-6 5 YEARS) 1982 PNEUMOCOCCAL VACCINES (50+ years) (1 of 2 - PCV) 08/07/1983 SCREENING FOR DIABETES 08/07/1999 COLOGUARD 2009 COLONOSCOPY 2009 COLORECTAL CANCER SCREENING 2009 FIT TEST 2009 FOBT 2009 SIGMOIDOSCOPY 2009 VIRTUAL COLONOSCOPY 2009 RSV VACCINE (1 - Risk 50-74 years 1-dose series) 2014 ZOSTER VACCINES (1 of 2) 2014 INFLUENZA VACCINE (#1) 2024 , 01/02/2017, 12/01/2015 COVID-19 VACCINE (2024-2 6 season) 2024 DEPRESSION SCREENING 11/27/2024 11/28/2023 Adult Td,Tdap Booster 01/05/2032 01/04/2022 SMOKING STATUS SCREENING (On ce After 26 Yrs) Completed 11/28/2023 HEPATITIS A VACCINES Aged Out No long er eligible based on patient's age to complete this topic HIB VACCINES Aged Out No longer eligi ble based on patient's age to complete this topic MENINGOCOCCAL VACCINES (ACWY) Aged Out No longer eligible based on patient's age to complete this topic MENINGOCOCCAL VACCINES (B) Aged Out N o longer eligible based on patient's age to complete this topic Medical Devices Not on file Insurance O O [facility] Member Subscriber Plan / Payer (Ef fective 2022-Present) Name:Tej Knox Relation to Subscriber:Self Name:Tej Knox Payer ID:Not on file Type:HMO Address: [place] [id number] Care Teams Supervisory Training Specialist Relationship Specialty Start Date End Date Dave Pettit MD [address] [place] [address], [address] [place] [address] PCP - General Family Medicine 05/07/24 Additional Source Comments The information contained in this document represents components of the legal health record. It is not the complete legal health record.[facility]
[2025-02-13 10:53] LABS: Prostate Specific Antigen 8.23 ng/mL (<0.05-4.0)
== END 2025-02-13 08:18 | disposition home or self-care (01) ==
LOC: HO.LAB 08:17
PROVIDERS: Visit Provider Nurse Practitioner Family
DX: Z12.5 Encounter for screening for malignant neoplasm of prostate (principal)
CPT/HCPCS: 36415; 84153

== ENCOUNTER 2025-02-18 15:32 | Outpatient (AMB) | payer OTHER, SELFPAY ==
--- NOTE | 2025-02-18 15:41 | MHC.OFFVIS ---
Intake Visit Reasons: 6m/PSA/UA Intake Note: Patient is present for 6M/PSA/UA PSA.8.23 Urology Medication:FINASTERIDE,TADALAFIL Antibiotic Allergy:NONE Blood Thinner:NONE Computer Numerical Control Grinder Required: No Allergies Benadryl Allergy (Unknown, Uncoded 02/18/25 16:42) hives Medication List - Last Reconciled 02/18/25 by Lisa Sprague INDUCTION MACHINE SETTER- albuterol sulfate 90 mcg/actuation 1 puff inhalation Q4-6H PRN finasteride 5 mg PO DAILY 90 days tadalafil 5 mg PO DAILY 90 days HPI Comments Details: Tej is a very pleasant 59-year-old male patient. He has a past medical history of iron deficiency anemia, asthma, and back pain. He presents to the office today for follow-up of his lower urinary tract symptoms and elevated PSA. In discussion with the patient today reports to be doing and feeling well He denies having had any bothersome urinary issues or concerns since his last office visit. He reports compliance with finasteride and Cialis as prescribed He discusses noting significant improvement in episodes of urinary urgency he had been experiencing. Recent PSA results reviewed with the patient today as noted and trended below. We discussed slight decrease in PSA. However PSA remains elevated. MRI results were reviewed and communicated with the patient today. 08/09 no discrete focus of abnormal signal intensity is identified to suggest clinically significant prostate carcinoma. PI-RADS 2. Previous workup has also included a retroperitoneal ultrasound 08/08 noting bilateral kidneys with no hydronephrosis or calculi noted. Left kidney with 5.2 cm simple cyst from the mid kidney. No imaging follow-up is recommended per radiology report. The bladder is well distended and normal. Bilateral ureteral jets are demonstrated. PSAs are as follows: PSAs: 03/05 17.5, 04/06 15.3, 08/04 10.7, 11/05 12.1, 11/05 1.4, 08/08 12.0, 09/08 12.3, 05/12 17.5, 08/09 9.0 % free PSA 9%, 02/09 8.2 Patient underwent prostate biopsy 11/08 with noting 12 core biopsy with benign prostatic tissue negative for malignancy. Patchy chronic inflammation is present. In office urinalysis results reviewed with the patient today. He denies any known family history of prostate cancer. He denies urinary urgency, urinary frequency, incontinence, nocturia, hematuria, dysuria, foul smelling urine, changes to urinary stream, flank pain, fever, and or chills. He is happy with her current voiding parameters. 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 He otherwise offers no other issues or concerns at this time. [facility] Medical History COVID-19 vaccine series completed Back pain Iron deficiency anemia Sleep difficulties Asthma Surgical History H/O umbilical hernia repair (01/30/21) Hx of colonoscopy [place] teeth removed H/O prostate biopsy Family History Father Cancer of spine Mother Emphysema, unspecified Social History Are you a primary memory care program resident to a significant other at home: No Do you presently have visiting nurse or other home services: No Patient Tobacco Use Status: Never used Tobacco Review of Systems Const All systems reviewed & are unremarkable except as noted in HPI and below Physical Exam Const General: cooperative, healthy appearing, comfortable, no acute distress, well developed, alert and awake Orientation/consciousness: patient oriented x3 Limitations: no limitations HEENT Head: Yes normal to inspection, Yes normocephalic and Yes atraumatic Ears: hearing grossly normal bilaterally Eyes General: appearance normal, both eyes and all related structures Neck Neck: Yes normal visual inspection and Yes trachea midline Chest Chest palpation & inspection: normal inspection of the chest Resp Effort & Inspection: normal respiratory effort and able to speak in complete sentences Cardio Rate: regular rate GI Inspection: Yes normal to inspection General: Yes no CVA tenderness Back/Spine/Pelvis Back: no CVA tenderness Skin General skin exam: no rashes or lesions noted Neuro General: patient oriented x3 Extrem General: Yes normal to inspection Psych Appearance: grossly normal and well kempt Mental Status: mental status grossly normal Speech and movement: Normal speech and movement present and Clear speech present Affect: normal affect Attitude: cooperative Thought process: Normal thought process present Thought content: Normal thought content present Insight: Fair insight present (Psych) Judgement: Fair judgement present (Psych) Results AMB Urinalysis, Automated UA Leukoctes 0 Arben/uL Last Edit by ANTHONY Ron on 02/18/25 16:04 UA Nitrite Negative Last Edit by ANTHONY Ron on 02/18/25 16:04 UA Urobilinogen 0.2 mg/dL Last Edit by ANTHONY Ron on 02/18/25 16:04 UA Protein 15 mg/dL Last Edit by ANTHONY Ron on 02/18/25 16:04 UA pH 6.0 Last Edit by Melissa Vasques CCM on 02/18/25 16:04 UA Blood 0 Gonzalez/uL Last Edit by ANTHONY Ron on 02/18/25 16:04 UA Specific [place] 1.030 Last Edit by Melissa Vasques CCM on 02/18/25 16:04 UA Ketone Negative Last Edit by ANTHONY Ron on 02/18/25 16:04 UA Bilirubin 0 mg/dL Last Edit by Melissa Vasques [facility] on 02/18/25 16:04 UA Glucose 1 mg/dL Last Edit by [facility] on 02/18/25 16:04 Results Reviewed Results Reviewed: Laboratory Last Values Urine pH (Auto) 6.0 02/18/25 16:03 Specific [place] (Auto) 1.030 02/18/25 16:03 Urine Protein (Auto) 15 mg/dL 02/18/25 16:03 Glucose (UA)(Auto) 1 mg/dL 02/18/25 16:03 Urine Ketones (Auto) Negative 02/18/25 16:03 Urine Blood (Auto) 0 Gonzalez/uL 02/18/25 16:03 Urine Nitrite (Auto) Negative 02/18/25 16:03 Urine Bilirubin (Auto) 0 mg/dL 02/18/25 16:03 Urine Urobilinogen (Auto) 0.2 mg/dL 02/18/25 16:03 Leukocyte Esterase (Auto) 0 Arben/uL 02/18/25 16:03 Assessment & Plan Assessment & Plan (1) Elevated PSA: Code(s): R97.20 - Elevated prostate specific antigen [PSA] Category: Medical (2) Enlarged prostate: Code(s): N40.0 - Benign prostatic hyperplasia without lower urinary tract symptoms Category: Medical (3) Prostatitis: Code(s): N41.9 - Inflammatory disease of prostate, unspecified Category: Medical (4) Lower urinary tract symptoms: Code(s): R39.9 - Unspecified symptoms and signs involving the genitourinary system Category: Medical (5) Nocturia: Code(s): R35.1 - Nocturia Category: Medical Plan In office urinalysis results reviewed with the patient today; as noted above. Recent PSA results reviewed with the patient today; as noted above. Patient currently denies any bothersome urinary issues or concerns. He reports be happy with current voiding parameters. Will continue Cialis as well as finasteride as prescribed; refills provided. Will continue with surveillance monitoring. All questions were answered. Will obtain PSA in 6 months. Follow-up in 6 months with PSA; or sooner with any issues, concerns, and or questions Orders: Orders PSA,Total (Free>4and<10) Today N40.0 - Benign prostatic hyperplasia without lower urinary tract symptoms, N41.9 - Inflammatory disease of prostate, unspecified, R97.20 - Elevated prostate specific antigen [PSA] AMB Urinalysis Automated Today Z13.9 - Encounter for screening, unspecified Patient Instructions: The patient had an opportunity to ask questions regarding the treatment plan. All questions were answered. Physical exam, labs, and imaging were discussed and reviewed in detail. As well as risks, benefits, and discussion of treatment choices. No major barriers to understanding were identified. The patient expressed understanding and agreement with the above treatment plan. The patient was made aware they should contact our office by phone for worsening of their current condition, the appearance of new symptoms, or with any questions or concerns. Compliance is encouraged with any medications and follow up testing that is ordered. It is a privilege to be allowed the opportunity to participate in? your urological care.? Again, if you have any questions or concerns If you have any questions or concerns please do not hesitate to contact me. The office is [phone]. This note is constructed using voice recognition software. While every effort has been made to ensure accuracy gut dropper errors may have been included. Yours sincerely, SEAN Castro Coding Level of Care Code Est Pt Level 3 (81257) Complex visit Add On G2211 Diagnoses Elevated PSA R97.20 Enlarged prostate N40.0 Prostatitis N41.9 Lower urinary tract symptoms R39.9 Nocturia R35.1
--- OUTSIDE RECORDS SUMMARY | 2025-02-18 21:39 | XMS_ITS | Clinical Summary ---
Author Organization [facility] Address [address] [address] Phone Care Team Providers Care Mold Design Engineer Name Role Phone Dave Pettit MD Primary Care Provider [phone] Allergies Active Allergy Reactions Criticality Noted Date [...] Plan (09/05/2023 6:00 PM EDT): Managed by [facility] urology. Notes that he is not interested in medication treatment at this time Mild intermittent asthma without complication Assessment & Plan (09/05/2023 6:00 PM EDT): Chronic and stable. Refill for albuterol inhaler sent to pharmacy Encounters Date Type Department Care Team Description 12/03/2024 Refill [facility] [address] [place] [address] Stefanie Gallardo, CHRIS Medication Refill from Last [...] high school, GED, job training, learning the [place] language, technical skills, or developing parenting skills)? [...] Devices Not on file Insurance O [facility] Member Subscriber Plan / Payer (Ef fective 2022-Present) Name:Tej Knox Relation to Subscriber:Self Name:Tej Knox Payer ID:Not on file Type:HMO Address: [place] [id number] Care Teams Mold Design Engineer Relationship Specialty Start Date End Date Dave Pettit MD [address] [place] [address], [address] [place] [address] PCP - General Family Medicine 05/07/24 Additional Source Comments The information contained in this document represents components of the legal health record. It is not the complete legal health record.[facility]
--- OUTSIDE RECORDS SUMMARY | 2025-02-18 21:39 | XMS_ITS ---
Author Name [facility] Organization Unknown Encounters Encounter Type Encounter Reason Primary Diagnosis Location Date Ambulatory [facility]. ([facility]) 02/10/2024
--- OUTSIDE RECORDS SUMMARY | 2025-02-18 21:39 | XMS_ITS | Data Portability ---
Author Organization [facility] [id number] [place] [address] Assessment No assessment recorded. Plan of Treatment [...] Send Out Template DOT completed Andreia Contreras [employer] 02/10/2024 13:28:41 Imaging Results None recorded. Procedure [...] ICD10 Code Diagnosis IMO Codes Diagnosis Note [id number] _[address] [place] [address] 06/09/2020 13:00:49 06/09/2020 13:55:20 [id number] SHARON TAMAYO [address] [address] 02/10/2024 13:03:57 02/10/2024 13:34:36 History and physical examination, occupation [id number] Z02.1 Health Concerns Section Related Observation LastModified by Organization Detai ls LastModified Time None Recorded Concern Status LastModified by Organization Details LastModified Time None Recorded Advance Directives Directive None Recorded Payers Insurance Date Sequence Insurance Name Policy Number Policy Vasquez Covered Member ID Vasquez Member ID Guarantor Name 02/10/2024 OC-ESCREEN [employer] n [[id number] Tej Knox
== END 2025-02-18 16:25 | disposition home or self-care (01) ==
LOC: HO.HUSH 15:33
PROVIDERS: Visit Provider Nurse Practitioner Family
DX: R97.20 Elevated prostate specific antigen [PSA] (principal); N40.0 Benign prostatic hyperplasia without lower urinary tract symptoms; N41.9 Inflammatory disease of prostate, unspecified; R39.9 Unspecified symptoms and signs involving the genitourinary system; R35.1 Nocturia; Z13.9 Encounter for screening, unspecified
CPT/HCPCS: 99213; G2211

== ENCOUNTER → 2025-02-18 15:32 | Outpatient (BNVA) | payer OTHER, SELFPAY | PROVIDERS: Visit Provider Nurse Practitioner Family | DX: Z13.9 Encounter for screening, unspecified (principal) | CPT/HCPCS: 81003 ==